=== PATIENT | female | born 1955 | race American Indian/Alaskan Native ===

== ENCOUNTER 2019-01-02 16:13 | Emergency (ER) | payer SELFPAY ==
--- NOTE | 2019-01-02 16:27 | Emergency Department Report ---
Blank Doc - Documentation Documentation: This is a 63-year-old female that presents with withdraw from pain medications. Patient stated has severe pain. This initial assessment/diagnostic orders/clinical plan/treatment(s) is/are subject to change based on patient's health status, clinical progression and re-assessment by fellow clinical providers in the ED. Further treatment and workup at subsequent clinical providers discretion. Patient/guardians urged not to elope from the ED as their condition may be serious if not clinically assessed and managed. Initial orders include: 1- Patient sent to [facility] for further evaluation and treatment 2- labs 3- UA
[2019-01-02 16:53] LABS: Basophils # (Auto) 0.1 K/mm3 (0.0-0.1); Basophils % (Auto) 0.7 % (0.0-1.8); Eosinophils # (Auto) 0.2 K/mm3 (0.0-0.4); Eosinophils % (Auto) 1.1 % (0.0-4.3); Hematocrit 38.8 % (30.3-42.9); Hemoglobin 12.6 gm/dl (10.1-14.3); Lymphocytes # (Auto) 2.5 K/mm3 (1.2-5.4); Lymphocytes % (Auto) 18.1 % (13.4-35.0); Mean Corpuscular HGB Conc 33 % (30-34); Mean Corpuscular Volume 97 fl (79-97); Monocytes # (Auto) 1.5 K/mm3 (0.0-0.8); Monocytes % (Auto) 10.4 % (0.0-7.3); Platelet Count 451 K/mm3 (140-440); Red Cell Distribution Width 15.4 % (13.2-15.2)
[2019-01-02 17:41] LABS: Calcium 9.6 mg/dL (8.4-10.2)
[2019-01-02] MEDS ORDERED: ULTRAM PO ONE (17:48)
[2019-01-02 17:58] VITALS: BP 145/70
--- NOTE | 2019-01-02 18:04 | Emergency Department Report ---
ED General Adult HPI - General Chief complaint: Pain General Stated complaint: RT SIDE PAIN/BACK PAIN Time Seen by Provider: 01/02/19 16:21 Source: patient Mode of arrival: Ambulatory Limitations: No Limitations - History of Present Illness Initial comments: 63 yo F with history of chronic back pain presents to ED requesting prescription. Pt states here PCP gave her prescription for Ultram 50 mg BID, however, states it should have been TID. Pt took meds TID and currently only has 2 pills left. Pt states she called here PCP to ask for a refill, states pharmacy won't fill it yet because it is too soon. Pt states PCP advised her to come to ED. Pt has upcoming appt with new pain management physician. Pt also currently has a neurostimulator which was adjusted a couple of months ago. -: unknown Location: back Severity scale (0 -10): 6 Consistency: intermittent Improves with: medication Worsens with: movement Associated Symptoms: denies other symptoms - Related Data Allergies Allergy/AdvReac Type Severity Reaction Status Date / Time No Known Allergies Allergy Verified 01/02/19 17:57 ED Review of Systems ROS: Stated complaint: RT SIDE PAIN/BACK PAIN Other details as noted in HPI Comment: All other systems reviewed and negative Constitutional: denies: fever Musculoskeletal: back pain ED Past Medical Hx - Past Medical History Previous Medical History?: Yes Hx Hypertension: Yes Hx CVA: Yes (2014,2016) Hx Diabetes: Yes Hx Psychiatric Treatment: Yes (DEPRESSION) Additional medical history: Degenerative disc disease, INTUBATION 2016- RLL VENOUS CLOT,STRIPPED. Post stroke Thalmic syndrome - Surgical History Additional Surgical History: AAA RESTECTION. - Social History Smoking Status: Never Smoker Substance Use Type: None ED Physical Exam - General Limitations: No Limitations General appearance: alert, in no apparent distress - Head Head exam: Present: atraumatic, normocephalic - Eye Eye exam: Present: normal appearance, PERRL - ENT ENT exam: Present: mucous membranes moist - Neck Neck exam: Present: normal inspection - Respiratory Respiratory exam: Present: normal lung sounds bilaterally. Absent: respiratory distress - Cardiovascular Cardiovascular Exam: Present: regular rate, normal rhythm - GI/Abdominal GI/Abdominal exam: Present: soft. Absent: distended - Extremities Exam Extremities exam: Present: normal inspection - Back Exam Back exam: Present: tenderness - Neurological Exam Neurological exam: Present: alert, oriented X3, normal gait - Psychiatric Psychiatric exam: Present: normal affect, normal mood - Skin Skin exam: Present: warm, dry, intact, normal color ED Course Vital Signs 01/02/19 01/02/19 16:23 17:58 Temperature 98 F Pulse Rate 128 H 74 Respiratory 18 16 Rate Blood Pressure 224/101 Blood Pressure 145/70 [Left] O2 Sat by Pulse 96 96 Oximetry ED Medical Decision Making - Lab Data Result diagrams: 01/02/19 16:38 01/02/19 16:38 - Medical Decision Making Pt initially upset, crying about her struggle with her chronic back pain. Tay hoffman this time, the pt walking and standing around the room w/o difficulty. Pt eventually able to calm down. Reports has new pain management physician that she will be seeing soon. I explained that would not be writing any prescriptions for her today. Pt understands, did not argue about it. One dose of tramadol given in ED. Vitals repeated and were normal. Outpt f/u advised. - Differential Diagnosis chronic back pain Critical care attestation.: If time is entered above; I have spent that time in minutes in the direct care of this critically ill patient, excluding procedure time. ED Disposition Clinical Impression: Chronic low back pain Disposition: DC-01 TO HOME OR SELFCARE Is pt being admited?: No Condition: Stable Instructions: Chronic Pain (ED) Referrals: GREG BHATIA MD [Staff Physician] - as needed PRIMARY CARE, [Referring] - as needed Time of Disposition: 18:04
== END 2019-01-02 18:30 | disposition home or self-care (01) ==
LOC: ED 16:13
DX: M54.5 Low back pain (principal); G89.29 Other chronic pain; I10 Essential (primary) hypertension; F32.9 Major depressive disorder, single episode, unspecified; E11.9 Type 2 diabetes mellitus without complications; Z98.890 Other specified postprocedural states; Z86.73 Personal history of transient ischemic attack (TIA), and cerebral infarction without residual deficits
CPT/HCPCS: 36415; 80048; 85025; 99283; G0480; 80320

== ENCOUNTER 2019-01-20 19:59 | Emergency (ER) | payer OTHER ==
--- NOTE | 2019-01-20 20:32 | Event Note ---
ED Screening Note Date of service: 01/20/19 Time: 20:28 ED Screening Note: This is a 63 y.o. F. that presents to the ER for removal of packing from I&D. Patient had an I&D in urgent care for a bartholin cyst on Wednesday. Currently taking pain medication and antibiotics. This initial assessment/diagnostic orders/clinical plan/treatment(s) is/are subject to change based on patients health status, clinical progression and re- assessment by fellow clinical providers in the ED. Further treatment and workup at subsequent clinical providers discretion. Patient/guardian urged not to elope from the ED as their condition may be serious if not clinically assessed and managed. Initial orders include: [facility] for further evaluation.
--- NOTE | 2019-01-20 21:53 | Emergency Department Report ---
- General Chief Complaint: Laceration/Recheck/Suture Stated Complaint: CYST Time Seen by Provider: 01/20/19 20:28 Source: patient Mode of arrival: Ambulatory Limitations: No Limitations - History of Present Illness Initial Comments: This is a 63 y.o. F. that presents to the ER for removal of packing from I&D. Patient had an I&D in urgent care for a bartholin cyst on Wednesday. Patient was seen at [facility] urgent care. Location: genitals Patient Tetanus UTD: Yes - Related Data Allergies Allergy/AdvReac Type Severity Reaction Status Date / Time No Known Allergies Allergy Verified 01/02/19 17:57 ED Review of Systems ROS: Stated complaint: CYST Other details as noted in HPI Comment: All other systems reviewed and negative ED Past Medical Hx - Past Medical History Previous Medical History?: Yes Hx Hypertension: Yes Hx CVA: Yes (2014,2015) Hx Diabetes: Yes Hx Psychiatric Treatment: Yes (DEPRESSION) Additional medical history: Degenerative disc disease, INTUBATION 2016- RLL VENOUS CLOT,STRIPPED. Post stroke Thalmic syndrome - Surgical History Past Surgical History?: Yes Additional Surgical History: AAA RESTECTION. - Social History Smoking Status: Current Every Day Smoker Substance Use Type: None ED Physical Exam - General Limitations: No Limitations General appearance: alert, in no apparent distress - Head Head exam: Present: atraumatic, normocephalic - Eye Eye exam: Present: PERRL, EOMI - ENT ENT exam: Present: mucous membranes moist - External exam: Present: other (patient has a small opening where there is no surgical packing nonerythematous nonerythematous nontender to touch opening.). Absent: erythema, swelling - Neurological Exam Neurological exam: Present: alert, oriented X3, normal gait - Psychiatric Psychiatric exam: Present: normal affect, normal mood - Skin Skin exam: Present: warm, dry, intact, normal color. Absent: rash ED Course Vital Signs 01/20/19 20:02 Temperature 98.3 F Pulse Rate 108 H Respiratory 16 Rate Blood Pressure 119/82 O2 Sat by Pulse 94 Oximetry ED Medical Decision Making - Medical Decision Making This is a 63 y.o. F. that presents to the ER for removal of packing from I&D. Patient had an I&D in urgent care for a bartholin cyst on Wednesday. Patient was seen at [facility] urgent care. Examination of perineum area shows no packing. Patient is to continue with her chronic pain medications and antibiotics as prescribed and her provider. Critical care attestation.: If time is entered above; I have spent that time in minutes in the direct care of this critically ill patient, excluding procedure time. ED Disposition Clinical Impression: Visit for wound check Disposition: TO HOME OR SELFCARE Is pt being admited?: No Does the pt Need Aspirin: No Condition: Stable Additional Instructions: Keep area clean and dry continue her routine of cleansing. Take your medications as prescribed. Follow up with her primary care provider if his symptoms persist or gets worse. Referrals: SUDHIR GUTHRIE MD [Primary Care Provider] - 3-5 Days
[2019-01-20 23:41] VITALS: BP 136/85
== END 2019-01-20 21:50 | disposition home or self-care (01) ==
LOC: ED 19:59
DX: Z48.01 Encounter for change or removal of surgical wound dressing (principal); I10 Essential (primary) hypertension; E11.9 Type 2 diabetes mellitus without complications; F32.9 Major depressive disorder, single episode, unspecified; F17.200 Nicotine dependence, unspecified, uncomplicated; Z86.73 Personal history of transient ischemic attack (TIA), and cerebral infarction without residual deficits; Z98.890 Other specified postprocedural states

== ENCOUNTER 2019-03-28 14:00 | Inpatient (IN) | payer MEDICARE, OTHER ==
--- NOTE | 2019-03-28 14:07 | Event Note ---
ED Screening Note Date of service: 03/28/19 Time: 14:05 ED Screening Note: 63 y o f with pmh of stroke x 2 presents with left sided weakness resulting in fall x 1 pm yesterday This initial assessment/diagnostic orders/clinical plan/treatment(s) is/are subject to change based on patients health status, clinical progression and re- assessment by fellow clinical providers in the ED. Further treatment and workup at subsequent clinical providers discretion. Patient/guardian urged not to elope from the ED as their condition may be serious if not clinically assessed and managed. Initial orders include: labs ct main side eval
[2019-03-28 14:42] LABS: INR 0.93 (0.87-1.13)
[2019-03-28 14:43] LABS: Partial Thromboplastin Time 32.1 Sec. (24.2-36.6); Thrombin Time 16.6 Sec. (15.1-19.6)
[2019-03-28 14:44] LABS: Hemoglobin 11.2 gm/dl (10.1-14.3); Mean Corpuscular HGB Conc 33 % (30-34); Mean Corpuscular Volume 98 fl (79-97); Platelet Count 472 K/mm3 (140-440); Red Blood Count 3.47 M/mm3 (3.65-5.03); Red Cell Distribution Width 16.4 % (13.2-15.2)
--- NOTE | 2019-03-28 14:59 | Cat Scan Report ---
CT HEAD WITHOUT CONTRAST INDICATION / CLINICAL INFORMATION: taras stroke. TECHNIQUE: All CT scans at this location are performed using CT dose reduction for ALARA by means of automated e xposure control. COMPARISON: None available. FINDINGS: HEMORRHAGE: No evidence of intracranial hemorrhage or extra-axial fluid collection. EXTRA-AXIAL SPACES: Cortical sulci, sylvian fissures and basilar cisterns have an unremarkable appear ance. VENTRICULAR SYSTEM: The ventricular system is of normal size and configuration. CEREBRAL PARENCHYMA: Periventricular and deep white matter areas of decreased attenuation are noted i n both cerebral hemispheres consistent with microvascular ischemic change which is greater than expec pop for patient's age of 63 years. Are there risk factors such as hypertension, diabetes or cigarette s smoking A focal low-attenuation lesion in the left thalamus represents a remote small deep infarcti on. Low-attenuation in the anterior limb of the right internal capsule could represent microvascular ischemic change versus small deep infarction, age indeterminate. Further evaluation with magnetic res onance imaging with diffusion imaging would be useful for further clarification of these findings.. MIDLINE SHIFT OR HERNIATION: There is no mass effect. CEREBELLUM / BRAINSTEM: Brainstem and cerebellum have an unremarkable appearance. INTRACRANIAL VESSELS: Extensively calcified atherosclerotic plaque is observed along the course of th e cavernous segments of both internal carotid arteries. ORBITS: visualized portions of the orbits have an unremarkable appearance. SOFT TISSUES of HEAD: No significant abnormality. CALVARIUM: Evaluation of bone windows reveals no abnormalities. PARANASAL SINUSES / MASTOID AIR CELLS: Paranasal sinuses are free from inflammatory mucosal disease. Mastoid air cells are normally pneumatized. IMPRESSION: 1. Advanced microvascular ischemic change. 2. Remote small deep infarction left thalamus. Question microvascular ischemic change versus age-inde terminate small deep infarction anterior limb right internal capsule. Follow-up with MRI brain to [facility] diffusion-weighted imaging is suggested. Signer Name: Mike William MD Signed: 03/28/2019 2:55 PM Workstation Name: [id number]
[2019-03-28 15:10] LABS: Creatine Kinase MB 1.5 ng/mL (0.0-4.0)
[2019-03-28 15:40] LABS: Bacteria,Urine 1+ /HPF (Negative); Mucus,Urine FEW /HPF
[2019-03-28 15:43] LABS: Color,Urine Yellow (Yellow)
[2019-03-28 15:44] LABS: Bilirubin,Urine Negative (Negative); Blood,Urine Negative (Negative); Urobilinogen,Urine < 2.0 mg/dL (<2.0)
[2019-03-28] MEDS ORDERED: cefTRIAXone/NS 1 GM/50 ML 1 GM/50 ML BAG IV ONE (16:07)
--- NOTE | 2019-03-28 16:11 | Emergency Department Report ---
ED General Adult HPI - General Chief complaint: Neuro Symptoms/Deficit Stated complaint: POSS STROKE/LFT HAND NUM Time Seen by Provider: 03/28/19 14:03 Source: patient Mode of arrival: Wheelchair Limitations: Physical Limitation - History of Present Illness Initial comments: * The patient presents to the ED with a chief complaint was mouth numbness and w hat most recently weakness. Patient has a history of CVA, hypertension, diabetes which she describes as residual right mouth numbness and right leg weakness. Patient states last night she noticed that her mouth was became more mild and that her right leg was more weak and was also spirits and sign ificant numbness. Patient states that her symptoms were not resolved this a.m. she decided to come to the hospital. They say she is noncompliant with her daily aspirin dosage. Patient denies chest pain, shortness of breath, or abdominal pain. -: Sudden Location: lower extremity Radiation: non-radiation Severity scale (0 -10): 0 Consistency: constant Improves with: none Worsens with: none Associated Symptoms: denies other symptoms Treatments Prior to Arrival: none - Related Data Home Medications Medication Instructions Recorded Confirmed Last Taken Amlodipine Besylate/Benazepril 1 each PO QDAY 03/28/19 03/28/19 03/28/19 [Amlodipine-Benazepril 10-40 mg] DULoxetine [Cymbalta] 30 mg PO QDAY 03/28/19 03/28/19 03/28/19 Gabapentin [Neurontin] 600 mg PO Q8H 03/28/19 03/28/19 03/27/19 Ibuprofen [Motrin] 800 mg PO Q8HR PRN 03/28/19 03/28/19 03/27/19 Triamter/Hctz 37.5-25 mg 2 tab PO QDAY 03/28/19 03/28/19 03/28/19 [Maxzide-25] traMADol [Ultram] 50 mg PO Q6HR PRN 03/28/19 03/28/19 03/27/19 Allergies Allergy/AdvReac Type Severity Reaction Status Date / Time No Known Allergies Allergy Verified 01/02/19 17:57 ED Review of Systems ROS: Stated complaint: POSS STROKE/LFT HAND NUM Other details as noted in HPI Comment: All other systems reviewed and negative Constitutional: denies: chills, fever Eyes: denies: eye pain, eye discharge, vision change ENT: denies: ear pain, throat pain Respiratory: denies: cough, shortness of breath, wheezing Cardiovascular: denies: chest pain, palpitations Endocrine: no symptoms reported Gastrointestinal: denies: abdominal pain, nausea, diarrhea Genitourinary: denies: urgency, dysuria, discharge Musculoskeletal: denies: back pain, joint swelling, arthralgia Skin: denies: rash, lesions Neurological: weakness, numbness. denies: headache, paresthesias Psychiatric: denies: anxiety, depression Hematological/Lymphatic: denies: easy bleeding, easy bruising ED Past Medical Hx - Past Medical History Previous Medical History?: Yes Hx Hypertension: Yes Hx CVA: Yes (2014,2015) Hx Diabetes: Yes Hx Psychiatric Treatment: Yes (DEPRESSION) Additional medical history: Degenerative disc disease, INTUBATION 2016- RLL VENOUS CLOT,STRIPPED. Post stroke Thalmic syndrome - Surgical History Past Surgical History?: Yes Additional Surgical History: AAA RESTECTION. - Social History Smoking Status: Current Every Day Smoker Substance Use Type: None - Medications Home Medications: Home Medications Medication Instructions Recorded Confirmed Last Taken Type Amlodipine Besylate/Benazepril 1 each PO QDAY 03/28/19 03/28/19 03/28/19 History [Amlodipine-Benazepril 10-40 mg] DULoxetine [Cymbalta] 30 mg PO QDAY 03/28/19 03/28/19 03/28/19 History Gabapentin [Neurontin] 600 mg PO Q8H 03/28/19 03/28/19 03/27/19 History Ibuprofen [Motrin] 800 mg PO Q8HR PRN 03/28/19 03/28/19 03/27/19 History Triamter/Hctz 37.5-25 mg 2 tab PO QDAY 03/28/19 03/28/19 03/28/19 History [Maxzide-25] traMADol [Ultram] 50 mg PO Q6HR PRN 03/28/19 03/28/19 03/27/19 History ED Physical Exam - General Limitations: Physical Limitation General appearance: alert, in no apparent distress - Head Head exam: Present: atraumatic, normocephalic - Eye Eye exam: Present: normal appearance, PERRL, EOMI - ENT ENT exam: Present: mucous membranes moist - Neck Neck exam: Present: normal inspection - Respiratory Respiratory exam: Present: normal lung sounds bilaterally. Absent: respiratory distress, wheezes, rales - Cardiovascular Cardiovascular Exam: Present: regular rate, normal rhythm. Absent: systolic murmur, diastolic murmur, rubs, gallop - GI/Abdominal GI/Abdominal exam: Present: soft, normal bowel sounds. Absent: distended, tenderness - Extremities Exam Extremities exam: Present: normal inspection - Back Exam Back exam: Present: normal inspection - Neurological Exam Neurological exam: Present: alert, oriented X3, CN II-XII intact. Absent: motor sensory deficit - Psychiatric Psychiatric exam: Present: normal affect, normal mood - Skin Skin exam: Present: warm, dry, intact, normal color. Absent: rash ED Course Vital Signs 03/28/19 03/28/19 03/28/19 14:09 15:10 16:27 Temperature 98.2 F Pulse Rate 91 H 72 66 Respiratory 20 16 16 Rate Blood Pressure 144/59 Blood Pressure 138/53 135/48 [Left] O2 Sat by Pulse 97 95 95 Oximetry ED Medical Decision Making - Lab Data Result diagrams: 03/28/19 14:11 Lab Results 03/28/19 03/28/19 03/28/19 Range/Units 14:11 14:11 14:11 WBC 10.9 (4.5-11.0) K/mm3 RBC 3.47 L (3.65-5.03) M/mm3 Hgb 11.2 (10.1-14.3) gm/dl Hct 34.0 (30.3-42.9) % MCV 98 H (79-97) fl MCH 32 (28-32) pg MCHC 33 (30-34) % RDW 16.4 H (13.2-15.2) % Plt Count 472 H (140-440) K/mm3 Lymph % (Auto) Computer Peripheral Equipment Operator Williams % (Auto) Computer Peripheral Equipment Operator Eos % (Auto) Computer Peripheral Equipment Operator Baso % (Auto) Computer Peripheral Equipment Operator Lymph # Computer Peripheral Equipment Operator Williams # Computer Peripheral Equipment Operator Eos # Computer Peripheral Equipment Operator Baso # Computer Peripheral Equipment Operator Seg Neutrophils % Computer Peripheral Equipment Operator Seg Neutrophils # Computer Peripheral Equipment Operator PT 12.2 (12.2-14.9) Sec. INR 0.93 (0.87-1.13) APTT 32.1 (24.2-36.6) Sec. Thrombin Time 16.6 (15.1-19.6) Sec. POC Glucose (70-105) Total Creatine Kinase 32 (30-135) units/L CK-MB (CK-2) 1.5 (0.0-4.0) ng/mL CK-MB (CK-2) Rel Index 4.6 H (0-4) Troponin T < 0.010 (0.00-0.029) ng/mL Urine Color (Yellow) Urine Turbidity (Clear) Urine pH (5.0-7.0) Ur Specific Allen (1.003-1.030) Urine Protein (Negative) mg/dL Urine Glucose (UA) (Negative) mg/dL Urine Ketones (Negative) mg/dL Urine Blood (Negative) Urine Nitrite (Negative) Ur Reducing Substances Urine Bilirubin (Negative) Urine Ictotest Urine Urobilinogen (<2.0) mg/dL Ur Leukocyte Esterase (Negative) Urine WBC (Auto) (0.0-6.0) /HPF Urine RBC (Auto) (0.0-6.0) /HPF U Epithel Cells (Auto) (0-13.0) /HPF Urine Bacteria (Auto) (Negative) /HPF Urine Mucus /HPF 03/28/19 03/28/19 Range/Units 14:16 15:09 WBC (4.5-11.0) K/mm3 RBC (3.65-5.03) M/mm3 Hgb (10.1-14.3) gm/dl Hct (30.3-42.9) % MCV (79-97) fl MCH (28-32) pg MCHC (30-34) % RDW (13.2-15.2) % Plt Count (140-440) K/mm3 Lymph % (Auto) Williams % (Auto) Eos % (Auto) Baso % (Auto) Lymph # Williams # Eos # Baso # Seg Neutrophils % Seg Neutrophils # PT (12.2-14.9) Sec. INR (0.87-1.13) APTT (24.2-36.6) Sec. Thrombin Time (15.1-19.6) Sec. POC Glucose 401 H (70-105) Total Creatine Kinase (30-135) units/L CK-MB (CK-2) (0.0-4.0) ng/mL CK-MB (CK-2) Rel Index (0-4) Troponin T (0.00-0.029) ng/mL Urine Color Yellow (Yellow) Urine Turbidity Cloudy (Clear) Urine pH 5.0 (5.0-7.0) Ur Specific Allen 1.027 (1.003-1.030) Urine Protein 30 mg/dl (Negative) mg/dL Urine Glucose (UA) >=500 (Negative) mg/dL Urine Ketones Trace (Negative) mg/dL Urine Blood Negative (Negative) Urine Nitrite Negative (Negative) Ur Reducing Substances Not Reportable Urine Bilirubin Negative (Negative) Urine Ictotest Not Reportable Urine Urobilinogen < 2.0 (<2.0) mg/dL Ur Leukocyte Esterase Large (Negative) Urine WBC (Auto) 85.0 H (0.0-6.0) /HPF Urine RBC (Auto) 3.0 (0.0-6.0) /HPF U Epithel Cells (Auto) 5.0 (0-13.0) /HPF Urine Bacteria (Auto) 1+ (Negative) /HPF Urine Mucus Few /HPF - EKG Data -: EKG Interpreted by Me EKG shows normal: sinus rhythm Rate: normal - Radiology Data Radiology results: report reviewed - Medical Decision Making results discussed with patient Patient was outside of the TPA window since her symptoms started yesterday before going to bed Critical care attestation.: If time is entered above; I have spent that time in minutes in the direct care of this critically ill patient, excluding procedure time. ED Disposition Clinical Impression: Numbness and tingling Disposition: 09 OP ADMIT IP TO THIS HOSP Is pt being admited?: No Does the pt Need Aspirin: No Condition: Stable - Assessment Assessment Interval: Baseline - Level of Consciousness 1a. Level of Consciousness: alert/keenly responsive - LOC Questions 1b. LOC Questions: answers both correctly - LOC Command 1c. LOC Commands: performs tasks correctly - Best Gaze 2. Best Gaze: normal - Visual 3. Visual: no visual loss - Facial Palsy 4. Facial Palsy: normal symmetrical movement - Motor Arm 5a. Motor Arm Left: no drift 5b. Motor Arm Right: no drift - Motor Leg 6a. Motor Leg Left: no drift 6b. Motor Leg Right: no drift - Limb Ataxia 7. Limb Ataxia: absent - Sensory 8. Sensory: normal - Best Language 9. Best Language: no aphasia - Dysarthria 10. Dysarthria: normal - Extinction and Inattention 11. Extinction/Inattention: no abnormality - Scoring Total Score: 0 Stroke Severity: No Stroke Symptoms
[2019-03-28] MEDS ORDERED: ASPIRIN 81 MG TAB CHEW PO ONE (16:25)
[2019-03-28] MEDS ORDERED: SODIUM CHLORIDE 0.9% 1000 ML 1,000 ML IV ONE (17:10)
[2019-03-28] MEDS ORDERED: SODIUM CHLORIDE 0.9% 1000 ML 1,000 ML ONE (17:13)
[2019-03-28] MEDS ORDERED: ACETAMINOPHEN 325 MG TAB PO PRN (20:43)
[2019-03-28] MEDS ORDERED: HYDROmorphone 1 MG/1 ML INJ IV PRN (20:43)
[2019-03-28] MEDS ORDERED: ONDANSETRON 4 MG/2 ML INJ IV PRN (20:43)
--- NOTE | 2019-03-28 20:43 | History and Physical Report ---
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 The symptoms are persistent with left-sided numbness of the face and left lower exudate weakness which is improved to some extent. Patient has no residual weakness on the right side from previous CVA's Past Medical History Previous Medical History?: Yes Hypertension: Yes CVA: Yes (2014,2016) Diabetes: Yes Psychiatric Treatment: Yes (DEPRESSION) Additional medical history: Degenerative disc disease, INTUBATION 2016- RLL VENOUS CLOT,STRIPPED. Post stroke Thalmic syndrome Surgical History Past Surgical History?: Yes Additional Surgical History: AAA RESTECTION Stents X 3 for PAD. Social History Current Every Day Smoker Substance Use Type: None Family History Htn - Medications Home Medications: Home Medications Medication Instructions Recorded Confirmed Last Taken Type Amlodipine Besylate/Benazepril 1 each PO QDAY 03/28/19 03/28/19 03/28/19 History [Amlodipine-Benazepril 10-40 mg] DULoxetine [Cymbalta] 30 mg PO QDAY 03/28/19 03/28/19 03/28/19 History Gabapentin [Neurontin] 600 mg PO Q8H 03/28/19 03/28/19 03/27/19 History Ibuprofen [Motrin] 800 mg PO Q8HR PRN 03/28/19 03/28/19 03/27/19 History Triamter/Hctz 37.5-25 mg 2 tab PO QDAY 03/28/19 03/28/19 03/28/19 History [Maxzide-25] traMADol [Ultram] 50 mg PO Q6HR PRN 03/28/19 03/28/19 03/27/19 History Review of Systems ROS: Stated complaint: POSS STROKE/LFT HAND NUM Other details as noted in HPI Comment: All other systems reviewed and negative Constitutional: denies: chills, fever Eyes: denies: eye pain, eye discharge, vision change ENT: denies: ear pain, throat pain Respiratory: denies: cough, shortness of breath, wheezing Cardiovascular: denies: chest pain, palpitations Endocrine: no symptoms reported Gastrointestinal: denies: abdominal pain, nausea, diarrhea Genitourinary: denies: urgency, dysuria, discharge Musculoskeletal: denies: back pain, joint swelling, arthralgia Skin: denies: rash, lesions Neurological: weakness, numbness. denies: headache, paresthesias Psychiatric: denies: anxiety, depression Hematological/Lymphatic: denies: easy bleeding, easy bruising Medications and Allergies Allergies Allergy/AdvReac Type Severity Reaction Status Date / Time No Known Allergies Allergy Verified 01/02/19 17:57 Home Medications Medication Instructions Recorded Confirmed Last Taken Type Amlodipine Besylate/Benazepril 1 each PO QDAY 03/28/19 03/28/19 03/28/19 History [Amlodipine-Benazepril 10-40 mg] DULoxetine [Cymbalta] 30 mg PO QDAY 03/28/19 03/28/19 03/28/19 History Gabapentin [Neurontin] 600 mg PO Q8H 03/28/19 03/28/19 03/27/19 History Ibuprofen [Motrin] 800 mg PO Q8HR PRN 03/28/19 03/28/19 03/27/19 History Triamter/Hctz 37.5-25 mg 2 tab PO QDAY 03/28/19 03/28/19 03/28/19 History [Maxzide-25] traMADol [Ultram] 50 mg PO Q6HR PRN 03/28/19 03/28/19 03/27/19 History Exam - Constitutional Vitals: Temp Pulse Resp BP Pulse Ox 98.2 F 69 18 148/58 94 03/28/19 14:09 03/28/19 19:49 03/28/19 19:49 03/28/19 19:49 03/28/19 19:49 Results - Labs CBC & Chem 7: 03/28/19 14:11 Labs: Laboratory Last Values WBC 10.9 K/mm3 (4.5-11.0) 03/28/19 14:11 RBC 3.47 M/mm3 (3.65-5.03) L 03/28/19 14:11 Hgb 11.2 gm/dl (10.1-14.3) 03/28/19 14:11 Hct 34.0 % (30.3-42.9) 03/28/19 14:11 MCV 98 fl (79-97) H 03/28/19 14:11 MCH 32 pg (28-32) 03/28/19 14:11 MCHC 33 % (30-34) 03/28/19 14:11 RDW 16.4 % (13.2-15.2) H 03/28/19 14:11 Plt Count 472 K/mm3 (140-440) H 03/28/19 14:11 Lymph % (Auto) Stem Shaper 03/28/19 14:11 [place] % (Auto) Stem Shaper 03/28/19 14:11 Eos % (Auto) Stem Shaper 03/28/19 14:11 Baso % (Auto) Stem Shaper 03/28/19 14:11 Lymph # Stem Shaper 03/28/19 14:11 [place] # Stem Shaper 03/28/19 14:11 Eos # Stem Shaper 03/28/19 14:11 Baso # Stem Shaper 03/28/19 14:11 Seg Neutrophils % Stem Shaper 03/28/19 14:11 Seg Neutrophils # Stem Shaper 03/28/19 14:11 PT 12.2 Sec. (12.2-14.9) 03/28/19 14:11 INR 0.93 (0.87-1.13) 03/28/19 14:11 APTT 32.1 Sec. (24.2-36.6) 03/28/19 14:11 Thrombin Time 16.6 Sec. (15.1-19.6) 03/28/19 14:11 POC Glucose 401 (70-105) H 03/28/19 14:16 Lactic Acid 2.10 mmol/L (0.7-2.0) H* 03/28/19 19:02 Total Creatine Kinase 32 units/L (30-135) 03/28/19 14:11 CK-MB (CK-2) 1.5 ng/mL (0.0-4.0) 03/28/19 14:11 CK-MB (CK-2) Rel Index 4.6 (0-4) H 03/28/19 14:11 Troponin T < 0.010 ng/mL (0.00-0.029) 03/28/19 14:11 Urine Color Yellow (Yellow) 03/28/19 15:09 Urine Turbidity Cloudy (Clear) 03/28/19 15:09 Urine pH 5.0 (5.0-7.0) 03/28/19 15:09 Ur Specific [place] 1.027 (1.003-1.030) 03/28/19 15:09 Urine Protein 30 mg/dl mg/dL (Negative) 03/28/19 15:09 Urine Glucose (UA) >=500 mg/dL (Negative) 03/28/19 15:09 Urine Ketones Trace mg/dL (Negative) 03/28/19 15:09 Urine Blood Negative (Negative) 03/28/19 15:09 Urine Nitrite Negative (Negative) 03/28/19 15:09 Ur Reducing Substances Not Reportable 03/28/19 15:09 Urine Bilirubin Negative (Negative) 03/28/19 15:09 Urine Ictotest Not Reportable 03/28/19 15:09 Urine Urobilinogen < 2.0 mg/dL (<2.0) 03/28/19 15:09 Ur Leukocyte Esterase Large (Negative) 03/28/19 15:09 Urine WBC (Auto) 85.0 /HPF (0.0-6.0) H 03/28/19 15:09 Urine RBC (Auto) 3.0 /HPF (0.0-6.0) 03/28/19 15:09 U Epithel Cells (Auto) 5.0 /HPF (0-13.0) 03/28/19 15:09 Urine Bacteria (Auto) 1+ /HPF (Negative) 03/28/19 15:09 Urine Mucus Few /HPF 03/28/19 15:09 Assessment and Plan Advance Directives: Yes (Full code) VTE prophylaxis?: Chemical Plan of care discussed with patient/family: Yes - Patient Problems (1) CVA (cerebral vascular accident) Current Visit: Yes Status: Acute Qualifiers: CVA mechanism: unspecified Qualified Code(s): I63.9 - Cerebral infarction, unspecified Plan to address problem: CVA w/u MRI,ECHO ordered,CDS ordered MRA not ordered Neuro consult requested ASA 325 mg po qd initiated (2) SIRS (systemic inflammatory response syndrome) Current Visit: Yes Status: Acute Plan to address problem: Sec to UTI High Lactic acid level Check urine cultures (3) HTN (hypertension) Current Visit: Yes Status: Chronic Qualifiers: Hypertension type: essential hypertension Qualified Code(s): I10 - Essential (primary) hypertension Plan to address problem: Cont antihypertensives (4) Peripheral neuropathy Current Visit: Yes Status: Chronic Qualifiers: Peripheral neuropathy type: polyneuropathy, unspecified Qualified Code(s): G62.9 - Polyneuropathy, unspecified Plan to address problem: Cont Gabapentin (5) Depression Current Visit: Yes Status: Chronic Qualifiers: Depression Type: unspecified Qualified Code(s): F32.9 - Major depressive disorder, single episode, unspecified Plan to address problem: Cont Cymbalta (6) UTI (urinary tract infection) Current Visit: Yes Status: Acute Qualifiers: Urinary tract infection type: acute cystitis Plan to address problem: Initiated on IV Rocephin Check urine cultures (7) T2DM (type 2 diabetes mellitus) Current Visit: Yes Status: Acute Qualifiers: Diabetes mellitus detention insulin use: without detention use Plan to address problem: Lantus 15 mg sq hs Initiated Metformin 500 mg po bid Check A1c (8) Nicotine dependence Current Visit: Yes Status: Chronic Qualifiers: Nicotine product type: cigarettes Plan to address problem: Counselled about Stopping cigarettes Nicoderm patch initiated (9) DVT prophylaxis Current Visit: Yes Status: Acute Plan to address problem: On Lovenox and GI prophylaxis
[2019-03-28] MEDS ORDERED: SODIUM CHLORIDE 0.9% 1000 ML 1,000 ML IV SCH (21:00)
[2019-03-28] MEDS: ASPIRIN 325 MG TAB PO SCH (21:43)
[2019-03-28] MEDS: metFORMIN 500 MG TAB PO SCH (23:28)
[2019-03-28] MEDS: oxyCODONE /ACETAMINOPHEN 5-325MG TAB PO PRN (23:29)
[2019-03-28] MEDS: INSULIN GLARGINE 100 UNITS/ML SUB-Q SCH (23:29)
[2019-03-28] MEDS: INSULIN LISPRO 100 UNIT/ML SUB-Q SCH (23:30)
[2019-03-29] MEDS: oxyCODONE /ACETAMINOPHEN 5-325MG TAB PO PRN ×3 (05:17→17:37)
[2019-03-29 05:57] LABS: Basophils # (Auto) 0.1 K/mm3 (0.0-0.1); Basophils % (Auto) 0.6 % (0.0-1.8); Eosinophils # (Auto) 0.2 K/mm3 (0.0-0.4); Hematocrit 32.3 % (30.3-42.9); Hemoglobin 10.6 gm/dl (10.1-14.3); Lymphocytes # (Auto) 2.1 K/mm3 (1.2-5.4); Lymphocytes % (Auto) 21.7 % (13.4-35.0); Mean Corpuscular HGB Conc 33 % (30-34); Mean Corpuscular Volume 99 fl (79-97); Monocytes % (Auto) 10.8 % (0.0-7.3); Platelet Count 416 K/mm3 (140-440); Red Blood Count 3.27 M/mm3 (3.65-5.03); Red Cell Distribution Width 16.5 % (13.2-15.2)
[2019-03-29 06:05] LABS: Albumin 3.3 g/dL (3.9-5); BUN/Creatinine Ratio 32; Blood Urea Nitrogen 19 mg/dL (7-17); Calcium 8.3 mg/dL (8.4-10.2); Chol/HDL Ratio 8.24 %; HDL Cholesterol 37 mg/dL (40-59); Hemolysis Index 2; LDL Cholesterol,Direct 233 mg/dL (50-130)
[2019-03-29 06:11] LABS: Alanine Aminotransferase < 5 units/L (7-56)
--- NOTE | 2019-03-29 08:32 | Vascular Lab Report ---
BILATERAL CAROTID DOPPLER ULTRASOUND INDICATION : stroke TECHNIQUE: Grayscale and color Doppler imaging performed through the neck. COMPARISON: None FINDINGS: Right: There is moderate heterogeneous, irregular, calcific plaque in the distal CCA, carotid bulb and proximal ICA.. Peak systolic velocity in the CCA is 116 cm/s with end-diastolic velocity of 14 cm /s. Peak systolic velocity in the proximal ICA is 153 cm/s with end-diastolic velocity of 10 cm/s. IC A to CCA ratio is less than 2. There is antegrade flow in the ECA and the vertebral artery. Left: There is mild heterogeneous calcific plaque in the mid CCA and carotid bulb. Peak systolic [place] in the CCA is 126 cm/s with end-diastolic velocity of 16 cm/s. Peak systolic velocity in the pro ximal ICA is 90 cm/s with end-diastolic velocity of 21 cm/s. ICA to CCA ratio is less than 2. There i s antegrade flow in the ECA and the vertebral artery. IMPRESSION: There is moderate atherosclerotic disease near the right carotid bifurcation with Doppler velocity measurements indicating 50-69% stenosis in the proximal and mid right ICA. There is less th an 50% luminal narrowing throughout the left carotid system.. Signer Name: Maynor Cotto Jr, MD Signed: 03/29/2019 8:28 AM Workstation Name: [id number]
[2019-03-29] MEDS: cefTRIAXone/NS 2 GM/100 ML 2 GM/100 ML BAG IV SCH (09:45)
[2019-03-29] MEDS: metFORMIN 500 MG TAB PO SCH ×2 (09:46→17:37)
[2019-03-29] MEDS: INSULIN LISPRO 100 UNIT/ML SUB-Q SCH ×4 (09:46→22:50)
[2019-03-29] MEDS: ASPIRIN 325 MG TAB PO SCH (09:47)
[2019-03-29] MEDS ORDERED: ENOXAPARIN 30 MG/0.3 ML INJ SUB-Q SCH (10:00)
[2019-03-29] MEDS ORDERED: FLU VACC QUAD 2019-20 (3 YR UP)/PF 60 MCG/0.5 ML SYRINGE IM ONE (12:00)
--- NOTE | 2019-03-29 16:52 | Progress Note ---
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 The symptoms are persistent with left-sided numbness of the face and left lower exudate weakness which is improved to some extent. Patient has no residual weakness on the right side from previous CVA's. Unable to do MRI due to nerve stimulator. (1) CVA (cerebral vascular accident) Current Visit: Yes Status: Acute Qualifiers: CVA mechanism: unspecified Qualified Code(s): I63.9 - Cerebral infarction, unspecified Plan to address problem: CVA w/u ECHO ordered,CDS ordered no MRI due to metallic nerve stimulator Neuro consult requested ASA 325 mg po qd initiated (2) Sepsis UTI Current Visit: Yes Status: Acute Plan to address problem: Sec to UTI High Lactic acid level Check urine cultures (3) HTN (hypertension) Current Visit: Yes Status: Chronic Qualifiers: Hypertension type: essential hypertension Qualified Code(s): I10 - Essential (primary) hypertension Plan to address problem: Cont antihypertensives (4) Peripheral neuropathy Current Visit: Yes Status: Chronic Qualifiers: Peripheral neuropathy type: polyneuropathy, unspecified Qualified Code(s): G62.9 - Polyneuropathy, unspecified Plan to address problem: Cont Gabapentin (5) Depression Current Visit: Yes Status: Chronic Qualifiers: Depression Type: unspecified Qualified Code(s): F32.9 - Major depressive disorder, single episode, unspecified Plan to address problem: Cont Cymbalta (6) UTI (urinary tract infection) Current Visit: Yes Status: Acute Qualifiers: Urinary tract infection type: acute cystitis Plan to address problem: Initiated on IV Rocephin Check urine cultures (7) T2DM (type 2 diabetes mellitus) Current Visit: Yes Status: Acute Qualifiers: Diabetes mellitus intermediate insulin use: without terminal worker use Plan to address problem: Lantus 15 mg sq hs Initiated Metformin 500 mg po bid Check A1c (8) Nicotine dependence Current Visit: Yes Status: Chronic Qualifiers: Nicotine product type: cigarettes Plan to address problem: Counselled about Stopping cigarettes Nicoderm patch initiated (9) DVT prophylaxis Current Visit: Yes Status: Acute Plan to address problem: On Lovenox and GI prophylaxis History Interval history: Patient was seen and examined. Follow-up on current diagnosis CVA. No overnight events reported to me. Patient denies any chest pain, shortness breath, n ausea/vomiting or severe headaches. Imaging, nursing note, chart, labs and old chart reviewed. Discussed with patient. Hospitalist Physical - Physical exam Narrative exam: Gen: WDWN, NAD, Awake, Alert, Orientated HEENT: NCAT, EOMI, PERRL, OP Clear Neck: supple, no adenopathy, no thyromegaly, no JVD CVS/Heart: RRR, normal S1S2, pulses present bilaterally Chest/Lungs: CTA B, Symmetrical chest expansion, good air entry bilaterally GI/Abdomen: soft, NTND, good bowel sounds, no guarding or rebound /Bladder: no suprapubic tenderness, no CVA or paraspinal tenderness Extermity/Skin: no c/c/e, no obvious rash MSK: FROM x 4 Neuro: CN 2-12 grossly intact, facial asym, left leg dragging, old right slight reduced muscle strength Psych: calm - Constitutional Vitals: Temp Pulse Resp BP Pulse Ox 98.4 F 67 18 159/56 97 03/29/19 04:03 03/29/19 10:00 03/29/19 11:00 03/29/19 04:03 03/29/19 10:15 Results - Labs CBC & Chem 7: 03/29/19 04:34 03/29/19 04:34 Labs: Laboratory Last Values WBC 9.6 K/mm3 (4.5-11.0) 03/29/19 04:34 RBC 3.27 M/mm3 (3.65-5.03) L 03/29/19 04:34 Hgb 10.6 gm/dl (10.1-14.3) 03/29/19 04:34 Hct 32.3 % (30.3-42.9) 03/29/19 04:34 MCV 99 fl (79-97) H 03/29/19 04:34 MCH 32 pg (28-32) 03/29/19 04:34 MCHC 33 % (30-34) 03/29/19 04:34 RDW 16.5 % (13.2-15.2) H 03/29/19 04:34 Plt Count 416 K/mm3 (140-440) 03/29/19 04:34 Lymph % (Auto) 21.7 % (13.4-35.0) 03/29/19 04:34 [place] % (Auto) 10.8 % (0.0-7.3) H 03/29/19 04:34 Eos % (Auto) 2.0 % (0.0-4.3) 03/29/19 04:34 Baso % (Auto) 0.6 % (0.0-1.8) 03/29/19 04:34 Lymph # 2.1 K/mm3 (1.2-5.4) 03/29/19 04:34 [place] # 1.0 K/mm3 (0.0-0.8) H 03/29/19 04:34 Eos # 0.2 K/mm3 (0.0-0.4) 03/29/19 04:34 Baso # 0.1 K/mm3 (0.0-0.1) 03/29/19 04:34 Seg Neutrophils % 64.9 % (40.0-70.0) 03/29/19 04:34 Seg Neutrophils # 6.2 K/mm3 (1.8-7.7) 03/29/19 04:34 PT 12.2 Sec. (12.2-14.9) 03/28/19 14:11 INR 0.93 (0.87-1.13) 03/28/19 14:11 APTT 32.1 Sec. (24.2-36.6) 03/28/19 14:11 Thrombin Time 16.6 Sec. (15.1-19.6) 03/28/19 14:11 Sodium 140 mmol/L (137-145) 03/29/19 04:34 Potassium 4.3 mmol/L (3.6-5.0) 03/29/19 04:34 Chloride 102.2 mmol/L (98-107) 03/29/19 04:34 Carbon Dioxide 26 mmol/L (22-30) 03/29/19 04:34 Anion Gap 16 mmol/L 03/29/19 04:34 BUN 19 mg/dL (7-17) H 03/29/19 04:34 Creatinine 0.6 mg/dL (0.7-1.2) L 03/29/19 04:34 Estimated GFR > 60 ml/min 03/29/19 04:34 BUN/Creatinine Ratio 32 % 03/29/19 04:34 Glucose 296 mg/dL (65-100) H 03/29/19 04:34 POC Glucose 280 (70-105) H 03/29/19 12:28 Hemoglobin A1c 13.0 % (4-6) H 03/28/19 14:11 Lactic Acid 2.80 mmol/L (0.7-2.0) H* 03/28/19 23:46 Calcium 8.3 mg/dL (8.4-10.2) L 03/29/19 04:34 Total Bilirubin < 0.20 mg/dL (0.1-1.2) 03/29/19 04:34 AST 8 units/L (5-40) 03/29/19 04:34 ALT < 5 units/L (7-56) L 03/29/19 04:34 Alkaline Phosphatase 94 units/L (35-129) 03/29/19 04:34 Total Creatine Kinase 32 units/L (30-135) 03/28/19 14:11 CK-MB (CK-2) 1.5 ng/mL (0.0-4.0) 03/28/19 14:11 CK-MB (CK-2) Rel Index 4.6 (0-4) H 03/28/19 14:11 Troponin T < 0.010 ng/mL (0.00-0.029) 03/28/19 14:11 Total Protein 6.2 g/dL (6.3-8.2) L 03/29/19 04:34 Albumin 3.3 g/dL (3.9-5) L 03/29/19 04:34 Albumin/Globulin Ratio 1.1 % 03/29/19 04:34 Triglycerides 368 mg/dL (2-149) H 03/29/19 04:34 Cholesterol 305 mg/dL (50-199) H 03/29/19 04:34 LDL Cholesterol Direct 233 mg/dL (50-130) H 03/29/19 04:34 HDL Cholesterol 37 mg/dL (40-59) L 03/29/19 04:34 Cholesterol/HDL Ratio 8.24 % 03/29/19 04:34 Urine Color Yellow (Yellow) 03/28/19 15:09 Urine Turbidity Cloudy (Clear) 03/28/19 15:09 Urine pH 5.0 (5.0-7.0) 03/28/19 15:09 Ur Specific [place] 1.027 (1.003-1.030) 03/28/19 15:09 Urine Protein 30 mg/dl mg/dL (Negative) 03/28/19 15:09 Urine Glucose (UA) >=500 mg/dL (Negative) 03/28/19 15:09 Urine Ketones Trace mg/dL (Negative) 03/28/19 15:09 Urine Blood Negative (Negative) 03/28/19 15:09 Urine Nitrite Negative (Negative) 03/28/19 15:09 Ur Reducing Substances Not Reportable 03/28/19 15:09 Urine Bilirubin Negative (Negative) 03/28/19 15:09 Urine Ictotest Not Reportable 03/28/19 15:09 Urine Urobilinogen < 2.0 mg/dL (<2.0) 03/28/19 15:09 Ur Leukocyte Esterase Large (Negative) 03/28/19 15:09 Urine WBC (Auto) 85.0 /HPF (0.0-6.0) H 03/28/19 15:09 Urine RBC (Auto) 3.0 /HPF (0.0-6.0) 03/28/19 15:09 U Epithel Cells (Auto) 5.0 /HPF (0-13.0) 03/28/19 15:09 Urine Bacteria (Auto) 1+ /HPF (Negative) 03/28/19 15:09 Urine Mucus Few /HPF 03/28/19 15:09 Active Medications - Current Medications Current Medications: Generic Name Dose Route Start Last Admin Trade Name Freq PRN Reason Stop Dose Admin Acetaminophen 650 mg 03/28/19 20:43 Tylenol PO Q4H PRN Pain MILD(1-3)/Fever >100.5/CASTRO Aspirin 325 mg 03/28/19 21:00 03/29/19 09:47 Aspirin PO 325 mg QDAY BRIDGER Administration Atorvastatin Calcium 40 mg 03/28/19 22:00 03/28/19 23:28 Lipitor PO 40 mg QHS BRIDGER Administration Enoxaparin Sodium 40 mg 03/30/19 10:00 Lovenox SUB-Q QDAY@1000 BRIDGER Hydromorphone HCl 0.5 mg 03/28/19 20:43 Dilaudid IV Q3H PRN Pain , Severe (7-10) Sodium Chloride 1,000 mls @ 75 mls/hr 03/28/19 21:00 03/29/19 05:17 Nacl 0.9% 1000 Ml IV 75 mls/hr DIRECT BRIDGER Administration Ceftriaxone Sodium 2 gm in 100 mls @ 200 mls/hr 03/29/19 10:00 03/29/19 09:45 Rocephin/Ns 2 Gm/100 Ml IV 200 mls/hr Q24HR BRIDGER Administration Protocol Insulin Glargine 15 units 03/28/19 22:00 03/28/19 23:29 Lantus SUB-Q 15 units QHS BRIDGER Administration Insulin Human Lispro 0 unit 03/28/19 22:00 03/29/19 12:51 Humalog SUB-Q 1 unit ACHS BRIDGER Administration Protocol Metformin HCl 500 mg 03/28/19 22:00 03/29/19 09:46 Glucophage PO 500 mg BIDDIAB BRIDGER Administration Ondansetron HCl 4 mg 03/28/19 20:43 Zofran IV Q8H PRN Nausea And Vomiting Oxycodone/Acetaminophen 1 tab 03/28/19 20:43 03/29/19 11:43 Percocet 5/325 PO 1 tab Q6H PRN Administration Pain, Moderate (4-6) Sodium Chloride 10 ml 03/28/19 22:00 03/29/19 09:47 Sodium Chloride Flush Syringe 10 Ml IV 10 ml BID BRIDGER Administration Sodium Chloride 10 ml 03/28/19 20:43 Sodium Chloride Flush Syringe 10 Ml IV PRN PRN LINE FLUSH Nutrition/Malnutrition Assess - Dietary Evaluation Nutrition/Malnutrition Findings: Nutrition Notes Start: 03/29/19 10:00 Freq: Status: Active Protocol: Document 03/29/19 10:00 BRITTANEY (Rec: 03/29/19 10:39 BRITTANEY [id number]) Co-Sign 03/29/19 10:00 LP Nutrition Notes Need for Assessment generated from: MD Order,manager club,MST, Education Initial or Follow up Brief Note Current Diagnosis Diabetes,Hypertension,Stroke Other Pertinent Diagnosis SIRS, UTI, Peripheral Neuropathy Current Diet Cardiac Labs/Tests Glu 296 A1C 13 Triglycerides 368 Cholesterol 305 Pertinent Medications Reviewed Subjective/Other Information Pt was in ECHO and MRI. Burn Absent Trauma Absent Nutrition Intervention Change Diet Order: Cardiac/Carb Consistent Follow-Up By: 03/30/19 Additional Comments F/U for DM diet education
--- NOTE | 2019-03-29 17:14 | Consultation ---
History of Present Illness Consult date: 03/29/19 Reason for Consult: Stroke Chief complaint: Left leg weakness History of present illness: Patient is 63-year-old woman with a history of previous stroke with residual right upper and lower extremity pain and paresthesias, hypertension, diabetes mellitus, depression, history of spinal cord stimulator placement. On 12/2018, patient states that she had onset of left leg weakness, and found that she was unsteady when trying to walk. She states that symptoms have persisted since then, however have slightly improved. Patient was noncompliant with aspirin, and states that she was taking it about every other day. Patient also is a current smoker area she was found to have a UTI on admission. Past History Past Medical History: other (history of previous stroke with residual right upper and lower extremity pain and paresthesias, hypertension, diabetes mellitus, depression, history of spinal cord stimulator placement) Social history: smoking Family history: no significant family history Medications and Allergies Allergies Allergy/AdvReac Type Severity Reaction Status Date / Time No Known Allergies Allergy Verified 01/02/19 17:57 Home Medications Medication Instructions Recorded Confirmed Last Taken Type Amlodipine Besylate/Benazepril 1 each PO QDAY 03/28/19 03/28/19 03/28/19 History [Amlodipine-Benazepril 10-40 mg] DULoxetine [Cymbalta] 30 mg PO QDAY 03/28/19 03/28/19 03/28/19 History Gabapentin [Neurontin] 600 mg PO Q8H 03/28/19 03/28/19 03/27/19 History Ibuprofen [Motrin] 800 mg PO Q8HR PRN 03/28/19 03/28/19 03/27/19 History Triamter/Hctz 37.5-25 mg 2 tab PO QDAY 03/28/19 03/28/19 03/28/19 History [Maxzide-25] traMADol [Ultram] 50 mg PO Q6HR PRN 03/28/19 03/28/19 03/27/19 History Active Meds: Active Medications Acetaminophen (Tylenol) 650 mg PO Q4H PRN PRN Reason: Pain MILD(1-3)/Fever >100.5/CASTRO Aspirin (Aspirin) 325 mg PO QDAY [facility] Last Admin: 03/29/19 09:47 Dose: 325 mg Documented by: Atorvastatin Calcium (Lipitor) 40 mg PO QHS [facility] Last Admin: 03/28/19 23:28 Dose: 40 mg Documented by: Enoxaparin Sodium (Lovenox) 40 mg SUB-Q QDAY@1000 [facility] Hydromorphone HCl (Dilaudid) 0.5 mg IV Q3H PRN PRN Reason: Pain , Severe (7-10) Sodium Chloride (Nacl 0.9% 1000 Ml) 1,000 mls @ 75 mls/hr IV DIRECT [facility] Last Admin: 03/29/19 05:17 Dose: 75 mls/hr Documented by: Ceftriaxone Sodium (Rocephin/Ns 2 Gm/100 Ml) 2 gm in 100 mls @ 200 mls/hr IV Q24HR [facility]; Protocol Last Admin: 03/29/19 09:45 Dose: 200 mls/hr Documented by: Insulin Glargine (Lantus) 15 units SUB-Q QHS [facility] Last Admin: 03/28/19 23:29 Dose: 15 units Documented by: Insulin Human Lispro (Humalog) 0 unit SUB-Q ACHS [facility]; Protocol Last Admin: 03/29/19 12:51 Dose: 1 unit Documented by: Metformin HCl (Glucophage) 500 mg PO BIDDIAB [facility] Last Admin: 03/29/19 09:46 Dose: 500 mg Documented by: Ondansetron HCl (Zofran) 4 mg IV Q8H PRN PRN Reason: Nausea And Vomiting Oxycodone/Acetaminophen (Percocet 5/325) 1 tab PO Q6H PRN PRN Reason: Pain, Moderate (4-6) Last Admin: 03/29/19 11:43 Dose: 1 tab Documented by: Sodium Chloride (Sodium Chloride Flush Syringe 10 Ml) 10 ml IV BID [facility] Last Admin: 03/29/19 09:47 Dose: 10 ml Documented by: Sodium Chloride (Sodium Chloride Flush Syringe 10 Ml) 10 ml IV PRN PRN PRN Reason: LINE FLUSH Review of Systems All systems: negative Neurological: weakness, parathesias, burning pain Physical Examination - Vital Signs Vital Signs: Vital Signs Temp Pulse Resp BP Pulse Ox 98.2 F 91 H 20 144/59 97 03/28/19 14:09 03/28/19 14:09 03/28/19 14:09 03/28/19 14:09 03/28/19 14:09 - Physical Exam Narrative exam: Patient is awake, alert, oriented and swore. Follows complex commands. PERRL, [place] full, no facial weakness noted, decreased to light touch on the right side of the face which is chronic, tongue midline. 5/5 strength in bilateral upper extremities and right lower extremity, 4/5 strength in left lower extremity. Decreased light touch on right upper and lower extremity. Bilaterally intact to [id number] and [id number]. 2+ reflexes throughout. - Constitutional General appearance: uncomfortable - EENT EENT: Present: ATNC, PERRL, mucous membranes moist, hearing intact, vision intact - Respiratory Respiratory: Present: lungs clear, normal breath sounds - Cardiovascular Cardiovascular: Present: regular rate, normal S1, normal S2 Extremities: Present: no clubbing, cyanosis, no inflammation - Gastrointestinal Gastrointestinal: Present: normoactive bowel sounds, soft, non-tender - Integumentary Integumentary: Present: normal - Musculoskeletal Musculoskeletal: Present: no fluid collection, normal range of motion - Psychiatric Psychiatric: Present: mood/affect appropriate - Level of Consciousness 1a. Level of Consciousness: alert/keenly responsive - LOC Questions 1b. LOC Questions: answers both correctly - LOC Command 1c. LOC Commands: performs tasks correctly - Best Gaze 2. Best Gaze: normal - Visual 3. Visual: no visual loss - Facial Palsy 4. Facial Palsy: normal symmetrical movement - Motor Arm 5a. Motor Arm Left: no drift 5b. Motor Arm Right: no drift - Motor Leg 6a. Motor Leg Left: no drift 6b. Motor Leg Right: no drift - Limb Ataxia 7. Limb Ataxia: absent - Sensory 8. Sensory: mild/moderate sensory loss - Best Language 9. Best Language: no aphasia - Dysarthria 10. Dysarthria: normal - Extinction and Inattention 11. Extinction/Inattention: no abnormality - Scoring Total Score: 1 Stroke Severity: Minor Stroke Results - Laboratory Findings CBC and BMP: 03/29/19 04:34 03/29/19 04:34 Abnormal Lab Findings: Abnormal Labs 03/28/19 03/28/19 03/28/19 14:11 14:11 14:11 RBC 3.47 L MCV 98 H RDW 16.4 H Plt Count 472 H [place] % (Auto) [place] # BUN Creatinine Glucose POC Glucose Hemoglobin A1c 13.0 H Lactic Acid Calcium ALT CK-MB (CK-2) Rel Index 4.6 H Total Protein Albumin Triglycerides Cholesterol LDL Cholesterol Direct HDL Cholesterol Urine WBC (Auto) 03/28/19 03/28/19 03/28/19 14:16 15:09 16:43 RBC MCV RDW Plt Count [place] % (Auto) [place] # BUN Creatinine Glucose POC Glucose 401 H Hemoglobin A1c Lactic Acid 2.20 H* Calcium ALT CK-MB (CK-2) Rel Index Total Protein Albumin Triglycerides Cholesterol LDL Cholesterol Direct HDL Cholesterol Urine WBC (Auto) 85.0 H 03/28/19 03/28/19 03/28/19 19:02 20:42 21:34 RBC MCV RDW Plt Count [place] % (Auto) [place] # BUN Creatinine Glucose POC Glucose 355 H Hemoglobin A1c Lactic Acid 2.10 H* 2.10 H* Calcium ALT CK-MB (CK-2) Rel Index Total Protein Albumin Triglycerides Cholesterol LDL Cholesterol Direct HDL Cholesterol Urine WBC (Auto) 03/28/19 03/29/19 03/29/19 23:46 04:34 04:34 RBC 3.27 L MCV 99 H RDW 16.5 H Plt Count [place] % (Auto) 10.8 H [place] # 1.0 H BUN 19 H Creatinine 0.6 L Glucose 296 H POC Glucose Hemoglobin A1c Lactic Acid 2.80 H* Calcium 8.3 L ALT < 5 L CK-MB (CK-2) Rel Index Total Protein 6.2 L Albumin 3.3 L Triglycerides 368 H Cholesterol 305 H LDL Cholesterol Direct 233 H HDL Cholesterol 37 L Urine WBC (Auto) 03/29/19 12:28 RBC MCV RDW Plt Count [place] % (Auto) [place] # BUN Creatinine Glucose POC Glucose 280 H Hemoglobin A1c Lactic Acid Calcium ALT CK-MB (CK-2) Rel Index Total Protein Albumin Triglycerides Cholesterol LDL Cholesterol Direct HDL Cholesterol Urine WBC (Auto) Assessment and Plan Patient is 63-year-old woman with a history of previous stroke with residual right upper and lower extremity pain and paresthesias, hypertension, diabetes mellitus, depression, history of spinal cord stimulator placement, who p/w LLE weakness. According to the patient's clinical findings, it is possible that she has had an acute ischemic stroke. Plan: 1. Stroke: - Unable to perform MRI as patient has spinal cord stimulator, and it would not be able to be turned on and off before and after the MRI at this facility. - Initial CT head showed previous left thalamic stroke. - Repeat CT had as unable to perform MRI. - Echo pending. Check CTA head and neck, to further assess the degree of stenosis of right internal carotid artery. Carotid ultrasound revealed 50-69% right ICA stenosis. - Continue aspirin. Atorvastatin 80 mg daily. Current LDL 233. Goal LDL less than 70. - PT/OT/ST DVT prophylaxis: Recommend Lovenox. Telemetry monitoring while in-house. - Recommend consult vascular surgery for evaluation of Rt. ICA stenosis, as patient may be candidate for CEA. 2. Hypertension: - Recommend target BP of normotension, as it has been >48 hours since onset of symptoms. Will continue to monitor the patient's neurologic status. Thank you for allowing me to take part in the care of this patient. Marquez Sutton MD Neurology
--- NOTE | 2019-03-29 19:56 | Cat Scan Report ---
CT HEAD WITHOUT CONTRAST INDICATION / CLINICAL INFORMATION: Stroke. TECHNIQUE: All CT scans at this location are performed using CT dose reduction for ALARA by means of automated e xposure control. COMPARISON: Head CT 03/28/2019 FINDINGS: Persistent microvascular ischemic changes are noted. Chronic small deep infarctions are identified in the thalamic bilaterally. Decreased attenuation in the anterior limb of the internal capsule is less well demonstrated on today's study. There is no indication of intracranial hemorrhage or extra-axial fluid collection. Extensively calcified atherosclerotic plaque is observed along the cavernous segments of both interna l carotid arteries. If recent infarction remains a clinical concern consideration should be given to MRI brain to include diffusion-weighted scans. IMPRESSION: 1. No definite interval change compared to study dated 03/28/2019. If recent infarction remains a clin ical concern consideration should be given to MRI brain to include diffusion-weighted imaging. Signer Name: Mike William MD Signed: 03/29/2019 7:52 PM Workstation Name: [id number]
--- NOTE | 2019-03-29 20:12 | Cat Scan Report ---
CTA head with intravenous contrast CLINICAL HISTORY: Stroke TECHNIQUE: 0.625 mm thick contiguous axial scans were obtained from the skull base to the skull vertex during ra pid bolus administration of intravenous contrast material. Multiplanar reconstructions were produced in the coronal and sagittal planes. In addition 3 plane MIP instructions were produced and reviewed f or this report. The axial source images and reconstructed images were reviewed for this report. All CT scans at this location are performed using CT dose reduction for ALARA by means of automated e xposure control. FINDINGS: Calcified atherosclerotic plaque is present along the course of the cavernous segments of both journalism intern al carotid arteries. There is no associated stenosis. No indication of intracranial stenosis or large vessel occlusion. Anterior cerebral and middle cerebr al arteries have an unremarkable appearance. Evaluation of the posterior circulation reveals mild dominance of the right vertebral artery. Both ve rtebral arteries contribute to the basilar artery origin. Basilar artery has an unremarkable appearan ce. An intact [place] of [place] is noted with anterior communicating arteries and bilateral posterior comm unicating arteries demonstrated bilaterally.. There is no evidence of aneurysm or other vascular malformation. IMPRESSION: 1. No indication of intracranial stenosis or large vessel occlusion. CONTRAST DOSE REPORT: Omnipaque 350: 100 ml administered intravenously. Signer Name: Mike William MD Signed: 03/29/2019 8:07 PM Workstation Name: [id number]
--- NOTE | 2019-03-29 20:23 | Cat Scan Report ---
CTA neck without and with intravenous contrast material CLINICAL HISTORY: Stroke TECHNIQUE: Following acquisition of a timing bolus 0.63 mm thick contiguous axial scans were obtained from aorti c arch to the skull base during rapid bolus intravenous contrast infusion. In addition to evaluation of axial source images multiplanar reconstructions were produced and reviewed for this report. 3 plan e MIP reconstructions were produced and reviewed. FINDINGS: Thoracic aorta: Calcified atherosclerotic plaque is observed along the descending thoracic aorta and at the origin of the left subclavian, left carotid and brachiocephalic arteries. There is no associat ed stenosis. Brachiocephalic artery has an otherwise normal appearance. No abnormalities are seen in evaluation of the right or left subclavian arteries. Right carotid artery: Right common carotid artery has an unremarkable appearance. Evaluation of the r ight carotid bifurcation is remarkable for the presence of calcified atherosclerotic plaque which is not associated with stenosis. Cervical segments of the R ICA have an unremarkable appearance. Left carotid artery: A small amount of soft plaque is seen along the lateral margin of the left commo n carotid artery at the level of the hyoid bone. There is no indication of hemodynamically significan t stenosis. No abnormalities are seen at the carotid bifurcation. The left internal carotid artery is tortuous swinging medially to deform the posterior lateral wall of the nasopharynx on the left. The cervical segments of the LICA have an otherwise unremarkable appearance. The right vertebral artery is dominant. Atherosclerotic disease is present at the origin of the righ t vertebral artery where a 50% stenosis is identified. No indication of atherosclerotic disease along the course of the left vertebral artery. Both vertebral arteries contribute to the basilar artery or igin. The degree of stenosis, if any, is determined utilizing NASCET like criteria. In this case there is no indication of hemodynamically significant stenosis at the carotid bifurcations or elsewhere.. There is a large (3.2 x 3.2 x 5.0 cm) mass in the superior mediastinum along the anterior right later al aspect of the trachea. This measures about 10 Hounsfield units in density. This could be a broncho genic cyst. Further evaluation with chest CT without contrast or MRI thorax would be useful for furth er evaluation. Several thyroid nodules are identified. These measure less than 9 mm in greatest dimension. No furthe r evaluation is required. Evaluation of the nonvascular soft tissue structures reveal no additional abnormality. There is no in dication of cervical lymphadenopathy. No abnormalities are seen along the course of the airway. Visua lized portions of the parotid glands and the submandibular salivary glands have a normal appearance. Evaluation of the lung apices reveals no evidence of lung nodule or infiltrate. Evaluation of the cer vical spine revealed no significant abnormalities. IMPRESSION: 1. Large low-attenuation superior mediastinal mass. Further evaluation is required. 2. No indication of hemodynamically significant stenosis at the carotid bifurcations or elsewhere. Contrast dose report: Omnipaque 350: 100 ml, administered intravenously All CT examinations performed at this facility utilize modulated dose reduction, iterative reconstruc tion or weight-based dosing, as appropriate, to obtain a radiation dose which is as low as can reason ably be achieved. Signer Name: Mike William MD Signed: 03/29/2019 8:19 PM Workstation Name: [id number]
[2019-03-29] MEDS: INSULIN GLARGINE 100 UNITS/ML SUB-Q SCH (22:50)
[2019-03-29] MEDS: GABAPENTIN 300 MG CAP PO SCH (22:50)
[2019-03-29] MEDS: traMADol 50 MG TAB PO PRN (23:21)
[2019-03-30] MEDS: metFORMIN 500 MG TAB PO SCH (08:59)
[2019-03-30] MEDS: INSULIN LISPRO 100 UNIT/ML SUB-Q SCH ×2 (08:59→13:15)
[2019-03-30] MEDS ORDERED: ENOXAPARIN 40 MG/0.4 ML INJ SUB-Q SCH (10:00)
[2019-03-30] MEDS ORDERED: DULoxetine 30 MG CAP PO SCH (10:00)
[2019-03-30] MEDS: ASPIRIN 325 MG TAB PO SCH (10:47)
[2019-03-30] MEDS: cefTRIAXone/NS 2 GM/100 ML 2 GM/100 ML BAG IV SCH (10:47)
--- NOTE | 2019-03-30 10:52 | Consultation ---
History of Present Illness - Reason for Consult Consult date: 03/30/19 Carotid Stenosis - History of Present Illness HPI: 63yo female with significant hx for PVD currently hospitalized after an episode of right sided facial numbness and left lower extremity weakness that lasted < 24hours. The patient has hx of previous CVA x2 with associated right sided weakness which has since resolved. The patient also with hx of [id number] bypass that was performed approx. 4 years ago at an outside institution but has been lost to follow-up due to moving. The patient experiences right leg pain with ambulation after approx 1 block. The patient currently smokes 1/2 ppd for the past 25 years. PE: NAD, A&Ox3 non-labored respirations RRR abd soft, nt, nd, well healed midline scar palpable femoral pulses unable to palpate pedal pulses, but feet arm warm CN II-XII intact, extremity strength 5/5 throughout Carotid duplex reviewed Neck CTA reviewed Plan: Patient presents with TIA possible CVA, MRI not performed carotid duplex concerning for right-sided moderate carotid stenosis but CTA demonstrates no significant disease no surgical intervention warranted, would continue to with medical management Patient also with symptoms of lower extremity claudication, this can be managed as an outpatient will have patient follow-up in clinic ok to d/c from my standpoint once medically cleared Past History Past Medical History: other (history of previous stroke with residual right upper and lower extremity pain and paresthesias, hypertension, diabetes mellitus, depression, history of spinal cord stimulator placement) Social history: smoking Family history: no significant family history Medications and Allergies Allergies Allergy/AdvReac Type Severity Reaction Status Date / Time No Known Allergies Allergy Verified 01/02/19 17:57 Home Medications Medication Instructions Recorded Confirmed Last Taken Type Amlodipine Besylate/Benazepril 1 each PO QDAY 03/28/19 03/28/19 03/28/19 History [Amlodipine-Benazepril 10-40 mg] DULoxetine [Cymbalta] 30 mg PO QDAY 03/28/19 03/28/19 03/28/19 History Gabapentin [Neurontin] 600 mg PO Q8H 03/28/19 03/28/19 03/27/19 History Ibuprofen [Motrin] 800 mg PO Q8HR PRN 03/28/19 03/28/19 03/27/19 History Triamter/Hctz 37.5-25 mg 2 tab PO QDAY 03/28/19 03/28/19 03/28/19 History [Maxzide-25] traMADol [Ultram] 50 mg PO Q6HR PRN 03/28/19 03/28/19 03/27/19 History Active Meds: Active Medications Acetaminophen (Tylenol) 650 mg PO Q4H PRN PRN Reason: Pain MILD(1-3)/Fever >100.5/CASTRO Aspirin (Aspirin) 325 mg PO QDAY [facility] Last Admin: 03/29/19 09:47 Dose: 325 mg Documented by: Atorvastatin Calcium (Lipitor) 80 mg PO QHS [facility] Last Admin: 03/29/19 22:50 Dose: 80 mg Documented by: Duloxetine HCl (Cymbalta) 30 mg PO QDAY [facility] Enoxaparin Sodium (Lovenox) 40 mg SUB-Q QDAY@1000 [facility] Gabapentin (Neurontin) 600 mg PO Q8H [facility] Last Admin: 03/29/19 22:50 Dose: 600 mg Documented by: Hydromorphone HCl (Dilaudid) 0.5 mg IV Q3H PRN PRN Reason: Pain , Severe (7-10) Sodium Chloride (Nacl 0.9% 1000 Ml) 1,000 mls @ 75 mls/hr IV DIRECT [facility] Last Admin: 03/29/19 05:17 Dose: 75 mls/hr Documented by: Ceftriaxone Sodium (Rocephin/Ns 2 Gm/100 Ml) 2 gm in 100 mls @ 200 mls/hr IV Q24HR [facility]; Protocol Last Admin: 03/29/19 09:45 Dose: 200 mls/hr Documented by: Insulin Glargine (Lantus) 15 units SUB-Q QHS [facility] Last Admin: 03/29/19 22:50 Dose: 15 units Documented by: Insulin Human Lispro (Humalog) 0 unit SUB-Q ACHS [facility]; Protocol Last Admin: 03/30/19 08:59 Dose: 3 unit Documented by: Metformin HCl (Glucophage) 500 mg PO BIDDIAB [facility] Last Admin: 03/30/19 08:59 Dose: 500 mg Documented by: Ondansetron HCl (Zofran) 4 mg IV Q8H PRN PRN Reason: Nausea And Vomiting Sodium Chloride (Sodium Chloride Flush Syringe 10 Ml) 10 ml IV BID [facility] Last Admin: 03/29/19 22:50 Dose: 10 ml Documented by: Sodium Chloride (Sodium Chloride Flush Syringe 10 Ml) 10 ml IV PRN PRN PRN Reason: LINE FLUSH Tramadol HCl (Ultram) 50 mg PO Q6H PRN PRN Reason: PAIN Last Admin: 03/29/19 23:21 Dose: 50 mg Documented by: Exam - Constitutional Vitals: Temp Pulse Resp BP Pulse Ox 98.5 F 62 18 139/58 95 03/30/19 07:28 03/30/19 08:39 03/30/19 07:28 03/30/19 07:28 03/30/19 08:15 Results - Labs CBC & Chem 7: 03/29/19 04:34 03/29/19 04:34 Labs: Abnormal lab results 03/29/19 03/29/19 Range/Units 12:28 16:47 POC Glucose 280 H 320 H (70-105)
[2019-03-30] MEDS: traMADol 50 MG TAB PO PRN (10:56)
[2019-03-30 11:50] VITALS: BP 178/73
--- NOTE | 2019-03-30 12:49 | Progress Note ---
Assessment and Plan Patient is 63-year-old woman with a history of previous stroke with residual right upper and lower extremity pain and paresthesias, hypertension, diabetes mellitus, depression, history of spinal cord stimulator placement, who p/w LLE weakness. According to the patient's clinical findings, it is possible that she has had an acute ischemic stroke. Plan: 1. TIA: - Unable to perform MRI as patient has spinal cord stimulator, and it would not be able to be turned on and off before and after the MRI at this facility. - Initial CT head showed previous left thalamic stroke. - Repeat CT did not show any evidence of ischemic stroke - Echo pending. Check CTA head and neck: did not show any signficant stenosis. Carotid ultrasound revealed 50-69% right ICA stenosis, however CTA neck did not show any significant stenosis. - Continue aspirin. Atorvastatin 80 mg daily. Current LDL 233. Goal LDL less than 70. - PT/OT/ST DVT prophylaxis: Recommend Lovenox. Telemetry monitoring while in-house. - Patient is not felt to be a CEA candidate at this time, as there is no significant stenosis on CTA neck/head. 2. Hypertension: - Recommend target BP of normotension, as it has been >48 hours since onset of symptoms. 3. UTI: - Cont. treatment per primary team 4. Superior mediastinal mass: - CTA neck/head showed large superior mediastinal mass and thyroid nodules. - Recommend further workup and management per primary team. Will continue to monitor the patient's neurologic status. Thank you for allowing me to take part in the care of this patient. Marquez Sutton MD Neurology Subjective Date of service: 03/30/19 Principal diagnosis: TIA Interval history: No acute events overnight. RLE weakness resolved today. Objective - Exam Narrative Exam: Patient is awake, alert, oriented and swore. Follows complex commands. PERRL, visual [place] full, no facial weakness noted, decreased to light touch on the right side of the face which is chronic, tongue midline. 5/5 strength in bilateral upper extremities and right lower extremity, 5/5 strength in left lower extremity. Decreased light touch on right upper and lower extremity (chronic). Bilaterally intact to [id number] and [id number]. 2+ reflexes throughout. - Vital Sign Vital Signs - 12hr 03/30/19 03/30/19 03/30/19 03:36 03:38 07:28 Temperature 98.6 F 98.5 F Pulse Rate 80 69 Respiratory 18 18 Rate Blood Pressure 167/82 139/58 O2 Sat by Pulse 95 96 Oximetry 03/30/19 03/30/19 03/30/19 08:15 08:39 11:05 Temperature 98.3 F Pulse Rate 62 68 Respiratory 18 Rate Blood Pressure 178/73 O2 Sat by Pulse 95 92 Oximetry - General Apperance Constitutional: comfortable - EENT EENT: ATNC, PERRL, mucous membranes moist, hearing intact, vision intact - Respiratory Respiratory: lungs clear, normal breath sounds - Cardiovascular Cardiovascular: regular rate, normal S1, normal S2 Extremities: no clubbing, cyanosis, no inflammation - Gastrointestinal Gastrointestinal: normoactive bowel sounds, soft, non-tender - Integumentary Integumentary: normal - Musculoskeletal Musculoskeletal: no fluid collection, normal range of motion - Psychiatric Psychiatric: mood/affect appropriate - Laboratory Findings CBC and BMP: 03/29/19 04:34 03/29/19 04:34 Abnormal Lab Findings: Abnormal Labs 03/28/19 03/28/19 03/28/19 14:11 14:11 14:11 RBC 3.47 L MCV 98 H RDW 16.4 H Plt Count 472 H [place] % (Auto) [place] # BUN Creatinine Glucose POC Glucose Hemoglobin A1c 13.0 H Lactic Acid Calcium ALT CK-MB (CK-2) Rel Index 4.6 H Total Protein Albumin Triglycerides Cholesterol LDL Cholesterol Direct HDL Cholesterol Urine WBC (Auto) 03/28/19 03/28/19 03/28/19 14:16 15:09 16:43 RBC MCV RDW Plt Count [place] % (Auto) [place] # BUN Creatinine Glucose POC Glucose 401 H Hemoglobin A1c Lactic Acid 2.20 H* Calcium ALT CK-MB (CK-2) Rel Index Total Protein Albumin Triglycerides Cholesterol LDL Cholesterol Direct HDL Cholesterol Urine WBC (Auto) 85.0 H 03/28/19 03/28/19 03/28/19 19:02 20:42 21:34 RBC MCV RDW Plt Count [place] % (Auto) [place] # BUN Creatinine Glucose POC Glucose 355 H Hemoglobin A1c Lactic Acid 2.10 H* 2.10 H* Calcium ALT CK-MB (CK-2) Rel Index Total Protein Albumin Triglycerides Cholesterol LDL Cholesterol Direct HDL Cholesterol Urine WBC (Auto) 03/28/19 03/29/1919 23:46 04:34 04:34 RBC 3.27 L MCV 99 H RDW 16.5 H Plt Count [place] % (Auto) 10.8 H [place] # 1.0 H BUN 19 H Creatinine 0.6 L Glucose 296 H POC Glucose Hemoglobin A1c Lactic Acid 2.80 H* Calcium 8.3 L ALT < 5 L CK-MB (CK-2) Rel Index Total Protein 6.2 L Albumin 3.3 L Triglycerides 368 H Cholesterol 305 H LDL Cholesterol Direct 233 H HDL Cholesterol 37 L Urine WBC (Auto) 03/29/19 03/29/19 03/30/19 12:28 16:47 12:16 RBC MCV RDW Plt Count [place] % (Auto) [place] # BUN Creatinine Glucose POC Glucose 280 H 320 H 217 H Hemoglobin A1c Lactic Acid Calcium ALT CK-MB (CK-2) Rel Index Total Protein Albumin Triglycerides Cholesterol LDL Cholesterol Direct HDL Cholesterol Urine WBC (Auto)
[2019-03-30] MEDS: GABAPENTIN 300 MG CAP PO SCH (13:17)
--- NOTE | 2019-03-30 13:33 | Discharge Summary ---
Providers - Providers Date of Admission: 03/28/19 20:43 Date of discharge: 03/30/19 Attending physician: ANDREINA UREÑA 03/28/19 20:43 Consult to Physician [CONS] Routine Comment: Consulting Provider: AURELIANO BARNES Physician Instructions: Reason For Exam: CVA/TIA 03/28/19 20:56 Occupational Therapy Evaluate and Treat [CONS] Routine Comment: Reason For Exam: Neuro deficits Physical Therapy Evaluation and Treat [CONS] Routine Comment: Reason For Exam: Neuro deficits 03/28/19 21:40 Consult to Dietitian/Nutrition [CONS] Routine Physician Instructions: Reason For Exam: New onset diabetes Reason for Consult: Nutrition Recommendations Reason for Consult: Diet education 03/29/19 17:42 Consult to Physician [CONS] Routine Comment: Consulting Provider: RADHA CASTRO Physician Instructions: Reason For Exam: Carotid Stenosis Primary care physician: LINETTE KO Hospitalization Condition: Stable Hospital course: Patient is a 63-year-old -[place] 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 The symptoms are persistent with left- sided numbness of the face and left lower exudate weakness which is improved to some extent. Patient has no residual weakness on the right side from previous CVA's. Unable to do MRI due to nerve stimulator. (PCP Dr. Ko who patient notified me today, she did not know his name, she went into her cell phone and showed my Dr. Ko, whom I then called on cell phone, no answer) Discharge Diagnoses: -Acute ischemic stroke/CVA with left facial sensory deficit -Carotid Stenosis -Sepsis UTI -Multi-Drug Resistant E. coli UTI: home on Bactrim or Ceftin -Hypertension -Peripheral Neuropathy -Tobacco dependency, I anger control counselor on stopping, she ok with Nicotine patch 1/2ppd -Depression by history Disposition: -01 TO HOME OR SELFCARE Time spent for discharge: 36 minutes Core Measure Documentation - Palliative Care Palliative Care/ Comfort Measures: Not Applicable - Core Measures Any of the following diagnoses?: stroke - VTE Discharge Requirements Deep Vein Thrombosis/Pulmonary Embolism Present on Admission: No Has pt received <5 days of overlap therapy or INR<2.0: No Anticoagulant overlap therapy prescribed at discharge: No Contraindication No Overlap Therapy order at DC: Not Indicated - Stroke Discharge Requirements Statin for LDL = or >70 mg/dl on DC: Yes Anticoag for atrial fib/atrial flutter: Not Applicable Reason for no anticoag for AF/F on DC: Not Indicated Antithrombotic for ischemic stroke: Yes Exam - Physical Exam Narrative exam: Gen: WDWN, NAD, Awake, Alert, Orientated HEENT: NCAT, EOMI, PERRL, OP Clear Neck: supple, no adenopathy, no thyromegaly, no JVD CVS/Heart: RRR, normal S1S2, pulses present bilaterally Chest/Lungs: CTA B, Symmetrical chest expansion, good air entry bilaterally GI/Abdomen: soft, NTND, good bowel sounds, no guarding or rebound /Bladder: no suprapubic tenderness, no CVA or paraspinal tenderness Extermity/Skin: no c/c/e, no obvious rash MSK: FROM x 4 Neuro: CN 2-12 grossly intact, facial asym, left leg dragging, old right slight reduced muscle strength Psych: calm - Constitutional Vitals: Temp Pulse Resp BP Pulse Ox 98.3 F 68 18 178/73 92 03/30/19 11:05 03/30/19 11:05 03/30/19 11:05 03/30/19 11:05 03/30/19 11:05 Plan Activity: up only with assistance, fall precautions, other (no strenous activity) Diet: low salt Special Instructions: smoking cessation Follow up with: LINETTE KO MD [Primary Care Provider] - 7 Days GEORGIE CUMMINS MD [Staff Physician] - 04/04/19 11:15 am Prescriptions: Atorvastatin Calcium [Lipitor] 80 mg PO QHS #30 tablet Aspirin 325 mg PO QDAY #30 tablet cefUROXime [Ceftin] 2 tab PO BID #20 tablet
== END 2019-03-30 17:00 | disposition home or self-care (01) | DRG 871 ==
LOC: ED 14:00 → 4A 20:43
PROVIDERS: ADMIT Internal Medicine; ATTEND Internal Medicine
DX: A41.9 Sepsis, unspecified organism (principal); I63.9 Cerebral infarction, unspecified; J98.59 Other diseases of mediastinum, not elsewhere classified; N30.00 Acute cystitis without hematuria; Z16.24 Resistance to multiple antibiotics; I10 Essential (primary) hypertension; F17.210 Nicotine dependence, cigarettes, uncomplicated; E11.42 Type 2 diabetes mellitus with diabetic polyneuropathy; F32.9 Major depressive disorder, single episode, unspecified; B96.20 Unspecified Escherichia coli [E. coli] as the cause of diseases classified elsewhere; I65.21 Occlusion and stenosis of right carotid artery; Z95.1 Presence of aortocoronary bypass graft; Z86.73 Personal history of transient ischemic attack (TIA), and cerebral infarction without residual deficits; Z79.4 Long term (current) use of insulin
CPT/HCPCS: 36415; 70450; 70496; 70498; 80053; 80061; 81001; 82140; 82550; 82553; 82962; 83036; 84484; 85025; 85610; 85670; 85730; 87040; 87076; 87086; 87186; 90686; 93005; 93010; 93306; 93880; 96365; 96375; 99406; G0378; A9270-GY; J0696; J1170; J1650; J1815; J7030; Q9967

== ENCOUNTER 2019-08-12 10:34 | Observation (INO) | payer MEDICARE ==
--- NOTE | 2019-08-12 11:24 | Emergency Department Report ---
ED Neuro Deficit HPI - General Chief Complaint: Neuro Symptoms/Deficit Stated Complaint: DOUBLE VISION Source: patient Mode of arrival: Ambulatory Limitations: No Limitations - History of Present Illness Initial Comments: This is a 64-year-old female who arrives complaining of double vision. She states that she has had this problem intermittently for the last 2 weeks. She states sometimes she sees to television screens. The problem appears to be worse when she looks to the left. She also thinks the problem is worse in her left thigh. There perhaps was some confusion about the history. However it is clear that the patient has had intermittent symptoms for 2 weeks. She states that the problem became more constant when she woke up this a.m. Patient states that she has had frequent falls. She has not passed out. She states that she has had some bruising to her right lower extremity. She states that she does have a cane but she does not use it. Likewise she does not use a walker. She does not report any difficulty in walking or problems with her speech. She does not report any acute motor or sensory deficit. She states that she is weak on her right side somewhat from an old "left thalamic stroke". She also states that she has a "post thalamic stroke pain syndrome". She states that this pain is chronic affects her lower extremities and is relieved by a combination of gabapentin, ibuprofen and tramadol. She does not complain of acute pain. The patient admits to noncompliance with her insulin. She states that she could not afford her Lantus. She admits that she has not attempted to get her regular insulin. She states that she has been to her primary care doctor about a month ago. She has been compliant with her metformin. Her glucose was found to be over 350 today. -: Gradual, week(s) Location: other (Double vision) Presenting Symptoms: Absent: Weak/Paralyzed One Side, Sudden, Severe Headache, Blurred/Loss of Vision, Facial Droop/Numbness, Unable to Speak Clearly, Altered Mental Status History of same: No Place: home Severity: mild, moderate Improves With: none Worsens With: none On Anticoagulants: No Context: gradual onset Associated Symptoms: denies other symptoms, other (Frequent falls) - Related Data Home Medications: Home Medications Medication Instructions Recorded Confirmed Last Taken DULoxetine [Cymbalta] 30 mg PO QDAY 03/28/19 03/28/19 03/28/19 Gabapentin [Neurontin] 600 mg PO Q8H 03/28/19 03/28/19 03/27/19 Previous Rx's Medication Instructions Recorded Last Taken Type Amlodipine Besylate/Benazepril 1 each PO QDAY #30 03/30/19 03/28/19 Rx [Amlodipine-Benazepril 10-40 mg] Aspirin 325 mg PO QDAY #30 tablet 03/30/19 Unknown Rx Atorvastatin Calcium [Lipitor] 80 mg PO QHS #30 tablet 03/30/19 Unknown Rx Insulin Glargine [Lantus VIAL] 15 units SUB-Q QHS #1000 units 03/30/19 Unknown Rx Triamter/Hctz 37.5-25 mg 1 tab PO QDAY #30 03/30/19 03/28/19 Rx [Maxzide-25] metFORMIN [Glucophage] 500 mg PO BIDDIAB #60 tablet 03/30/19 Unknown Rx traMADoL [Ultram 50 MG tab] 50 mg PO Q6HR PRN #30 03/30/19 03/27/19 Rx Allergies/Adverse Reactions: Allergies Allergy/AdvReac Type Severity Reaction Status Date / Time No Known Allergies Allergy Verified 01/02/19 17:57 ED Review of Systems ROS: Stated complaint: DOUBLE VISION Other details as noted in HPI Constitutional: other. denies: chills, fever Eyes: denies: eye pain, eye discharge, vision change ENT: denies: ear pain, throat pain Respiratory: denies: cough, shortness of breath, wheezing Cardiovascular: denies: chest pain, palpitations Endocrine: no symptoms reported Gastrointestinal: denies: abdominal pain, nausea, diarrhea Genitourinary: denies: urgency, dysuria, discharge Musculoskeletal: denies: back pain, joint swelling, arthralgia Skin: denies: rash, lesions Neurological: as per HPI, other (Diplopia). denies: headache, weakness, numbness, paresthesias, confusion, abnormal gait Psychiatric: denies: anxiety, depression Hematological/Lymphatic: denies: easy bleeding, easy bruising ED Past Medical Hx - Past Medical History Previous Medical History?: Yes Hx Hypertension: Yes Hx CVA: Yes (2014,2015) Hx Heart Attack/AMI: No Hx Congestive Heart Failure: No Hx Diabetes: Yes Hx Deep Vein Thrombosis: No Hx Liver Disease: No Hx Arthritis: No Hx Seizures: No Hx Psychiatric Treatment: Yes (DEPRESSION) Hx Asthma: No Hx COPD: No Hx Dementia: No Additional medical history: Degenerative disc disease, INTUBATION 2016- RLL VENOUS CLOT,STRIPPED. Post stroke Thalmic syndrome - Surgical History Past Surgical History?: Yes Hx Coronary Stent: No Hx Pacemaker: No Hx Internal Defibrillator: No Additional Surgical History: AAA RESTECTION. - Social History Smoking Status: Unknown if ever smoked Substance Use Type: None - Medications Home Medications: Home Medications Medication Instructions Recorded Confirmed Last Taken Type DULoxetine [Cymbalta] 30 mg PO QDAY 03/28/19 03/28/19 03/28/19 History Gabapentin [Neurontin] 600 mg PO Q8H 03/28/19 03/28/19 03/27/19 History Amlodipine Besylate/Benazepril 1 each PO QDAY #30 03/30/19 03/28/19 03/28/19 Rx [Amlodipine-Benazepril 10-40 mg] Aspirin 325 mg PO QDAY #30 tablet 03/30/19 Unknown Rx Atorvastatin Calcium [Lipitor] 80 mg PO QHS #30 tablet 03/30/19 Unknown Rx Insulin Glargine [Lantus VIAL] 15 units SUB-Q QHS #1000 units 03/30/19 Unknown Rx Triamter/Hctz 37.5-25 mg 1 tab PO QDAY #30 03/30/19 03/28/19 03/28/19 Rx [Maxzide-25] metFORMIN [Glucophage] 500 mg PO BIDDIAB #60 tablet 03/30/19 Unknown Rx traMADoL [Ultram 50 MG tab] 50 mg PO Q6HR PRN #30 03/30/19 03/28/19 03/27/19 Rx ED Neuro Physical Exam - General Limitations: No Limitations General appearance: alert, in no apparent distress Suspected Stroke: Yes - Head Head exam: Present: atraumatic, normocephalic - Eye Eye exam: Present: normal appearance - ENT ENT exam: Present: mucous membranes moist - Neck Neck exam: Present: normal inspection, full ROM. Absent: tenderness, men ingismus - Respiratory Respiratory exam: Present: normal lung sounds bilaterally. Absent: respiratory distress - Cardiovascular Cardiovascular Exam: Present: regular rate, normal rhythm. Absent: systolic murmur, diastolic murmur, rubs, gallop - GI/Abdominal GI/Abdominal exam: Present: soft, normal bowel sounds. Absent: distended, tenderness, guarding, rebound - Extremities Exam Extremities exam: Present: normal inspection, other (No deformity) - Back Exam Back exam: Present: normal inspection - Neurological Exam Neurological exam: Present: alert, oriented X3. Absent: CN II-XII intact (There appears to be a) - NIHSS Assessment Interval: Baseline 1a. Level of Consciousness: alert/keenly responsive 1b. LOC Questions: answers both correctly 1c. LOC Commands: performs tasks correctly 2. 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 Visual: no visual loss 4. Facial Palsy: minor paralysis (Slight right facial asymmetry which is chr onic) 5b. Motor Arm Right: no drift 5a. Motor Arm Left: no drift 6a. Motor Leg Left: no drift 6b. Motor Leg Right: no drift 7. Limb Ataxia: absent 8. Sensory: mild/moderate sensory loss (It is chronic) 9. Best Language: no aphasia 10. Dysarthria: normal 11. Extinction/Inattention: no abnormality Total Score: 3 Stroke Severity: Minor Stroke - Psychiatric Psychiatric exam: Present: normal affect, normal mood - Skin Skin exam: Present: warm, dry, intact, normal color. Absent: rash ED Course Vital Signs 08/12/19 08/12/19 08/12/19 10:37 11:07 11:15 Temperature 97.7 F Pulse Rate 91 H 85 Respiratory 18 19 Rate Blood Pressure 176/81 Blood Pressure 198/68 [Right] O2 Sat by Pulse 99 98 95 Oximetry 08/12/19 11:30 Temperature Pulse Rate 73 Respiratory 19 Rate Blood Pressure 160/69 Blood Pressure [Right] O2 Sat by Pulse 94 Oximetry - Reevaluation(s) Reevaluation #1: Discussed with tele-neurologist. They think that the patient has a 3rd nerve palsy. Looks more to me like a left abducens nerve palsy. In any case I think this is likely to be a chronic diabetic neuropathy. However to complete the stroke work-up the patient will be admitted by the hospitalist service. I discussed CT findings with the tele-radiologist. The patient has old strokes in the right galarza radiata and left thalamus. 08/12/19 11:39 - Lab Data Result diagrams: 08/12/19 11:15 Lab Results 08/12/19 08/12/19 Range/Units 11:15 11:15 WBC 10.4 (4.5-11.0) K/mm3 RBC 3.90 (3.65-5.03) M/mm3 Hgb 11.9 (10.1-14.3) gm/dl Hct 35.6 (30.3-42.9) % MCV 91 (79-97) fl MCH 31 (28-32) pg MCHC 34 (30-34) % RDW 17.3 H (13.2-15.2) % Plt Count 476 H (140-440) K/mm3 Lymph % (Auto) 21.3 (13.4-35.0) % [place] % (Auto) 11.6 H (0.0-7.3) % Eos % (Auto) 1.7 (0.0-4.3) % Baso % (Auto) 0.4 (0.0-1.8) % Lymph # 2.2 (1.2-5.4) K/mm3 [place] # 1.2 H (0.0-0.8) K/mm3 Eos # 0.2 (0.0-0.4) K/mm3 Baso # 0.0 (0.0-0.1) K/mm3 Seg Neutrophils % 65.0 (40.0-70.0) % Seg Neutrophils # 6.7 (1.8-7.7) K/mm3 PT 12.8 (12.2-14.9) Sec. INR 0.95 (0.87-1.13) APTT 35.1 (24.2-36.6) Sec. Laboratory Results - last 24 hr 08/12/19 08/12/19 11:15 11:15 WBC 10.4 RBC 3.90 Hgb 11.9 Hct 35.6 MCV 91 MCH 31 MCHC 34 RDW 17.3 H Plt Count 476 H Lymph % (Auto) 21.3 [place] % (Auto) 11.6 H Eos % (Auto) 1.7 Baso % (Auto) 0.4 Lymph # 2.2 [place] # 1.2 H Eos # 0.2 Baso # 0.0 Seg Neutrophils % 65.0 Seg Neutrophils # 6.7 PT 12.8 INR 0.95 APTT 35.1 Laboratory Results - last 24 hr 08/12/19 08/12/19 11:15 11:15 WBC 10.4 RBC 3.90 Hgb 11.9 Hct 35.6 MCV 91 MCH 31 MCHC 34 RDW 17.3 H Plt Count 476 H Lymph % (Auto) 21.3 [place] % (Auto) 11.6 H Eos % (Auto) 1.7 Baso % (Auto) 0.4 Lymph # 2.2 [place] # 1.2 H Eos # 0.2 Baso # 0.0 Seg Neutrophils % 65.0 Seg Neutrophils # 6.7 PT 12.8 INR 0.95 APTT 35.1 - EKG Data -: EKG Interpreted by Me EKG shows normal: sinus rhythm, axis, intervals, QRS complexes, ST-T waves Rate: normal Interpretation: nonspecific ST-T wave hanna Critical care attestation.: If time is entered above; I have spent that time in minutes in the direct care of this critically ill patient, excluding procedure time. ED Disposition Clinical Impression: Extraocular muscle palsy of left eye, Poorly-controlled hypertension, Diplopia Hyperglycemia due to type 2 diabetes mellitus Qualifiers: Diabetes mellitus senior care insulin use: with remote computer terminal operator use Qualified Code(s): E11.65 - Type 2 diabetes mellitus with hyperglycemia Disposition: DC-09 OP ADMIT IP TO THIS HOSP Is pt being admited?: Yes Does the pt Need Aspirin: Yes Condition: Stable Instructions: Diabetes Mellitus Type 2 in Adults (ED) Time of Disposition: 11:41
[2019-08-12 11:29] LABS: Basophils % (Auto) 0.4 % (0.0-1.8); Eosinophils # (Auto) 0.2 K/mm3 (0.0-0.4); Eosinophils % (Auto) 1.7 % (0.0-4.3); Hematocrit 35.6 % (30.3-42.9); Hemoglobin 11.9 gm/dl (10.1-14.3); Lymphocytes # (Auto) 2.2 K/mm3 (1.2-5.4); Lymphocytes % (Auto) 21.3 % (13.4-35.0); Mean Corpuscular HGB Conc 34 % (30-34); Mean Corpuscular Volume 91 fl (79-97); Monocytes # (Auto) 1.2 K/mm3 (0.0-0.8); Monocytes % (Auto) 11.6 % (0.0-7.3); Platelet Count 476 K/mm3 (140-440); Red Cell Distribution Width 17.3 % (13.2-15.2)
--- NOTE | 2019-08-12 11:29 | Cat Scan Report ---
CT HEAD WITHOUT CONTRAST INDICATION / CLINICAL INFORMATION: MAIN: CODE STROKE CALL [phone]. TECHNIQUE: All CT scans at this location are performed using CT dose reduction for ALARA by means of automated e xposure control. COMPARISON: Head CT 03/29/2019 FINDINGS: HEMORRHAGE: No evidence of intracranial hemorrhage or extra-axial fluid collection. EXTRA-AXIAL SPACES: Cortical sulci, sylvian fissures and basilar cisterns have an unremarkable appear ance. VENTRICULAR SYSTEM: The ventricular system is of normal size and configuration. CEREBRAL PARENCHYMA: There is evidence of remote small deep infarction is noted in the posterior aspe ct of the left thalamus and in the right galarza radiata and head of caudate nucleus on the right. No indication of acute infarction is demonstrated. MIDLINE SHIFT OR HERNIATION: There is no mass effect. CEREBELLUM / BRAINSTEM: Decreased attenuation in the yaajira is thought likely due to beam hardening art ifact from adjacent petrous bones. INTRACRANIAL VESSELS: Ossified atherosclerotic plaque is seen along the course of the cavernous segme nts of both internal carotid arteries. ORBITS: visualized portions of the orbits have an unremarkable appearance. SOFT TISSUES of HEAD: No significant abnormality. CALVARIUM: Evaluation of bone windows reveals no abnormalities. PARANASAL SINUSES / MASTOID AIR CELLS: Paranasal sinuses are free from inflammatory mucosal disease. Mastoid air cells are normally pneumatized. IMPRESSION: 1. Remote small deep infarctions left thalamus, right galarza radiata and head of caudate nucleus on t he right. 2. No acute intracranial abnormality. Code stroke: I called report of this study to Dr. Thacker of the [facility] emerg ency department at about 1021 Central standard time. Signer Name: Mike William MD Signed: 08/12/2019 11:25 AM Workstation Name: [id number]
--- NOTE | 2019-08-12 11:29 | Emergency Department Report ---
ED Neuro Deficit HPI - General Chief Complaint: Neuro Symptoms/Deficit Stated Complaint: DOUBLE VISION Source: patient Mode of arrival: Ambulatory Limitations: No Limitations - History of Present Illness Initial Comments: [facility] Tele[facility]urology [facility] Date of Service: 08/12/2019 10:42:40 Impression: Diplopia Comments: 64 yo with new onset diplopia. This is a horizontal process, and exam shows a mildly downward deviated left eye. I suspect a partial CN 3 palsy on the left, likely ischemic/diabetic. This is a stroke equivalent that should prompt work-up but no tPA due to time, and no EARLINE as a small vessel process. Metrics: Last Known Well: 08/11/2019 14:00:00 [facility] Notification Time: 08/12/2019 10:42:16 Arrival Time: 08/12/2019 10:34:00 Stamp Time: 08/12/2019 10:42:40 Time First Login Attempt: 08/12/2019 10:45:23 Video Start Time: 08/12/2019 10:50:02 Symptoms: Diplopia NIHSS Start Assessment Time: 08/12/2019 10:55:56 Patient is not a candidate for tPA. Patient was not deemed candidate for tPA thrombolytics because of Last Well Known Above 4.5 Hours. Video End Time: 08/12/2019 11:02:28 CT head showed no acute hemorrhage or acute core infarct. CT head was reviewed. Clinical Presentation is not Suggestive of Large Vessel Occlusive Disease, Patient is not a Candidate for Thrombectomy ED Physician notified of diagnostic impression and management plan on 08/12/2019 11:04:17 Our recommendations are outlined below. Recommendations: Activate Stroke Protocol Admission/Order Set Stroke/Telemetry Floor Neuro Checks Bedside Swallow Eval DVT Prophylaxis IV Fluids, Normal Saline Head of Bed Below 30 Degrees Euglycemia and Avoid Hyperthermia (PRN Acetaminophen) Initiate Aspirin Neurology consult Recommended Scan: Carotid Dopplers Echocardiogram - Transthoracic Echocardiogram Lipid Panel to Be Obtained, if Not Done in the Last Three Months Therapies: Physical Therapy, Occupational Therapy, Speech Therapy Assessment When Applicable Dysphaghia Screen: Swallow Evaluation, Bedside NPO Until Swallow Evaluation DVT prophylaxis: Choice of Primary Team Disposition: Sign Out Sign Out: Discussed with Emergency Department Provider History of Present Illness: Patient is a 64 year old Female. Patient was brought by private transportation with symptoms of Diplopia 64 yo with past stroke and residual R side symptoms states at about 1400 yesterday sudden onset of diplopia. It is a binocular process, improves if she covers one eye. Reports a horizontal diplopia, one image above the other. She also feels as if her chronic R side symptoms are a bit worse since this all started. She drove herself to ER this morning due to persistence of symptoms. She is diabetic, and takes ASA daily. CT head showed no acute hemorrhage or acute core infarct. CT head was reviewed. Examination: 1A: Level of Consciousness - Alert; keenly responsive + 0 1B: Ask Month and Age - Both Questions Right + 0 1C: Blink Eyes & Squeeze Hands - Performs Both Tasks + 0 2: Test Horizontal Extraocular Movements - Normal + 0 3: Test Visual Emerson - No Visual Loss + 0 4: Test Facial Palsy (Use Grimace if Obtunded) - Normal symmetry + 0 5A: Test Left Arm Motor Drift - No Drift for 10 Seconds + 0 5B: Test Right Arm Motor Drift - No Drift for 10 Seconds + 0 6A: Test Left Leg Motor Drift - No Drift for 5 Seconds + 0 6B: Test Right Leg Motor Drift - No Drift for 5 Seconds + 0 7: Test Limb Ataxia (FNF/Heel-Coker) - No Ataxia + 0 8: Test Sensation - Mild-Moderate Loss: Less Sharp/More Dull + 1 9: Test Language/Aphasia - Normal; No aphasia + 0 10: Test Dysarthria - Normal + 0 11: Test Extinction/Inattention - No abnormality + 0 NIHSS Score: 1 Patient was informed the Neurology Consult would happen via TeleHealth consult by way of interactive audio and video telecommunications and consented to receiving care in this manner. Due to the immediate potential for life-threatening deterioration due to underlying acute neurologic illness, I spent 35 minutes providing critical care. This time includes time for face to face visit via telemedicine, review of medical records, imaging studies and discussion of findings with providers, the patient and/or family. Dr Franc Costa [facility] Case [id number] - Related Data Home Medications: Home Medications Medication Instructions Recorded Confirmed Last Taken DULoxetine [Cymbalta] 30 mg PO QDAY 03/28/19 03/28/19 03/28/19 Gabapentin [Neurontin] 600 mg PO Q8H 03/28/19 03/28/19 03/27/19 Previous Rx's Medication Instructions Recorded Last Taken Type Amlodipine Besylate/Benazepril 1 each PO QDAY #30 03/30/19 03/28/19 Rx [Amlodipine-Benazepril 10-40 mg] Aspirin 325 mg PO QDAY #30 tablet 03/30/19 Unknown Rx Atorvastatin Calcium [Lipitor] 80 mg PO QHS #30 tablet 03/30/19 Unknown Rx Insulin Glargine [Lantus VIAL] 15 units SUB-Q QHS #1000 units 03/30/19 Unknown Rx Lispro Insulin [HumaLOG] 1 dose SUB-Q ACHS PRN #1000 units 03/30/19 Unknown Rx Nicotine [Habitrol] 21 mg TD DAILY #15 patch 03/30/19 Unknown Rx Triamter/Hctz 37.5-25 mg 1 tab PO QDAY #30 03/30/19 03/28/19 Rx [Maxzide-25] cefUROXime [Ceftin] 2 tab PO BID #20 tablet 03/30/19 Unknown Rx metFORMIN [Glucophage] 500 mg PO BIDDIAB #60 tablet 03/30/19 Unknown Rx traMADoL [Ultram 50 MG tab] 50 mg PO Q6HR PRN #30 03/30/19 03/27/19 Rx Allergies/Adverse Reactions: Allergies Allergy/AdvReac Type Severity Reaction Status Date / Time No Known Allergies Allergy Verified 01/02/19 17:57 ED Review of Systems ROS: Stated complaint: DOUBLE VISION Other details as noted in HPI ED Past Medical Hx - Past Medical History Previous Medical History?: Yes Hx Hypertension: Yes Hx CVA: Yes (2014,2015) Hx Heart Attack/AMI: No Hx Congestive Heart Failure: No Hx Diabetes: Yes Hx Deep Vein Thrombosis: No Hx Liver Disease: No Hx Arthritis: No Hx Seizures: No Hx Psychiatric Treatment: Yes (DEPRESSION) Hx Asthma: No Hx COPD: No Hx Dementia: No Additional medical history: Degenerative disc disease, INTUBATION 2016- RLL VENOUS CLOT,STRIPPED. Post stroke Thalmic syndrome - Surgical History Past Surgical History?: Yes Hx Coronary Stent: No Hx Pacemaker: No Hx Internal Defibrillator: No Additional Surgical History: AAA RESTECTION. - Social History Smoking Status: Unknown if ever smoked Substance Use Type: None - Medications Home Medications: Home Medications Medication Instructions Recorded Confirmed Last Taken Type DULoxetine [Cymbalta] 30 mg PO QDAY 03/28/19 03/28/19 03/28/19 History Gabapentin [Neurontin] 600 mg PO Q8H 03/28/19 03/28/19 03/27/19 History Amlodipine Besylate/Benazepril 1 each PO QDAY #30 03/30/19 03/28/19 03/28/19 Rx [Amlodipine-Benazepril 10-40 mg] Aspirin 325 mg PO QDAY #30 tablet 03/30/19 Unknown Rx Atorvastatin Calcium [Lipitor] 80 mg PO QHS #30 tablet 03/30/19 Unknown Rx Insulin Glargine [Lantus VIAL] 15 units SUB-Q QHS #1000 units 03/30/19 Unknown Rx Lispro Insulin [HumaLOG] 1 dose SUB-Q ACHS PRN #1000 units 03/30/19 Unknown Rx Nicotine [Habitrol] 21 mg TD DAILY #15 patch 03/30/19 Unknown Rx Triamter/Hctz 37.5-25 mg 1 tab PO QDAY #30 03/30/19 03/28/19 03/28/19 Rx [Maxzide-25] cefUROXime [Ceftin] 2 tab PO BID #20 tablet 03/30/19 Unknown Rx metFORMIN [Glucophage] 500 mg PO BIDDIAB #60 tablet 03/30/19 Unknown Rx traMADoL [Ultram 50 MG tab] 50 mg PO Q6HR PRN #30 03/30/19 03/28/19 03/27/19 Rx ED Neuro Physical Exam - General Limitations: No Limitations Suspected Stroke: Yes - NIHSS Assessment Interval: Baseline 1a. Level of Consciousness: alert/keenly responsive 1b. LOC Questions: answers both correctly 1c. LOC Commands: performs tasks correctly 2. Best Gaze: normal 3. Visual: no visual loss 4. Facial Palsy: normal symmetrical movement 5b. Motor Arm Right: no drift 5a. Motor Arm Left: no drift 6a. Motor Leg Left: no drift 6b. Motor Leg Right: no drift 7. Limb Ataxia: absent 8. Sensory: mild/moderate sensory loss 9. Best Language: no aphasia 10. Dysarthria: normal 11. Extinction/Inattention: no abnormality Total Score: 1 Stroke Severity: Minor Stroke ED Course Vital Signs 08/12/19 10:37 Temperature 97.7 F Pulse Rate 91 H Respiratory 18 Rate Blood Pressure 198/68 [Right] O2 Sat by Pulse 99 Oximetry Critical care attestation.: If time is entered above; I have spent that time in minutes in the direct care of this critically ill patient, excluding procedure time. ED Disposition Clinical Impression: Diplopia Disposition: DC-[id number] OP ADMIT IP TO THIS HOSP Is pt being admited?: Yes Does the pt Need Aspirin: Yes Condition: Stable
[2019-08-12 11:39] LABS: INR 0.95 (0.87-1.13)
[2019-08-12 11:40] LABS: Partial Thromboplastin Time 35.1 Sec. (24.2-36.6)
[2019-08-12] MEDS ORDERED: ASPIRIN 325 MG TAB PO ONE (11:41)
[2019-08-12 12:00] LABS: BUN/Creatinine Ratio 22; Blood Urea Nitrogen 22 mg/dL (7-17); Calcium 9.6 mg/dL (8.4-10.2); Hemolysis Index 13
[2019-08-12 12:04] LABS: Alanine Aminotransferase 9 units/L (7-56); Albumin 4.1 g/dL (3.9-5)
[2019-08-12 12:06] LABS: Bilirubin,Direct < 0.2 mg/dL (0-0.2)
--- NOTE | 2019-08-12 12:28 | History and Physical Report ---
History of Present Illness Chief complaint: I felt weak and my speech was slurred for a while History of present illness: 64 YO Female with HTN, Depression, Peripheral Neuropathy, CVA, DM, Nicotine Dependence, PVD S/P stent placement, Degenerative Disk disease presents to ED for evaluation. Patient states that she has experienced intermittent blurred vision over the past 2 weeks. Patient also reports that she was in her usual state of health at bedtime around 2130 hrs. overnight. Patient states that she awoke from sleep this morning around 0800 hrs. and experienced acute onset of worsening blurred vision and weakness on her right side as well as difficulty speaking. Patient transported to [facility] via private vehicle for further care and evaluation. Patient seen and evaluated in the emergency department. A code stroke was called and the patient was initiated on CVA protocol. Lab and imaging studies reviewed. Patient was found to have symptoms consistent with CVA and admitted to medical floor and initiated on CVA protocol. Tele-neurology was consulted in the emergency department. Patient denies fever, chills, chest pain, palpitations, unilateral leg swelling, calf pain, productive cough, skin rash, vertigo, syncope, trauma, headache, recent ill contacts. Prior admission on 03/28/2019 reviewed. All listed medication reconciled at time of admission. Advanced care planning conducted in ED. Past History Past Medical History: diabetes, hypertension, PVD, stroke, other (See HPI) Past Surgical History: abd. aortic aneurysm repair Social history: single. denies: smoking, alcohol abuse, prescription drug abuse Family history: diabetes, hypertension Medications and Allergies Allergies Allergy/AdvReac Type Severity Reaction Status Date / Time No Known Allergies Allergy Verified 01/02/19 17:57 Home Medications Medication Instructions Recorded Confirmed Last Taken Type DULoxetine [Cymbalta] 30 mg PO QDAY 03/28/19 08/12/19 03/28/19 History Gabapentin [Neurontin] 600 mg PO Q8H 03/28/19 08/12/19 03/27/19 History Amlodipine Besylate/Benazepril 1 each PO QDAY #30 03/30/19 08/12/19 03/28/19 Rx [Amlodipine-Benazepril 10-40 mg] Aspirin 325 mg PO QDAY #30 tablet 03/30/19 08/12/19 Unknown Rx Atorvastatin Calcium [Lipitor] 80 mg PO QHS #30 tablet 03/30/19 08/12/19 Unknown Rx Insulin Glargine [Lantus VIAL] 15 units SUB-Q QHS #1000 units 03/30/19 08/12/19 Unknown Rx Triamter/Hctz 37.5-25 mg 1 tab PO QDAY #30 03/30/19 08/12/19 03/28/19 Rx [Maxzide-25] metFORMIN [Glucophage] 500 mg PO BIDDIAB #60 tablet 03/30/19 08/12/19 Unknown Rx traMADoL [Ultram 50 MG tab] 50 mg PO Q6HR PRN #30 03/30/19 08/12/19 03/27/19 Rx Review of Systems Constitutional: no weight loss, no weight gain, no fever, no chills Ears, nose, mouth and throat: no ear pain, no ear discharge, no tinnitis, no decreased hearing, no nose pain, no nasal congestion Breasts: no change in shape, no swelling, no mass Cardiovascular: no chest pain, no rapid/irregular heart beat, no edema, no lightheadedness Respiratory: no cough, no cough with sputum, no hemoptysis, no shortness of breath, no dyspnea on exertion Gastrointestinal: no abdominal pain, no nausea, no vomiting, no diarrhea Genitourinary Female: no pelvic pain, no flank pain, no menorrhagia, no dysuria, no urgency, no stress incontinence, no post void dribbling Rectal: no pain, no incontinence Musculoskeletal: no neck stiffness, no neck pain, no arm numbness/tingling, no low back pain, no leg numbness/tingling, no redness of joints Integumentary: no rash, no pruritis, no sores Neurological: weakness, change in speech, confusion, loss of vision, no tingling, no seizures, no syncope, no tremors Psychiatric: no anxiety, no memory loss, no change in sleep habits, no sleep disturbances, no hypersomnia, no change in appetite Endocrine: no cold intolerance, no heat intolerance, no polyphagia, no excessive thirst, no excessive sweating, no flushing Hematologic/Lymphatic: no easy bruising, no easy bleeding, no lymphadenopathy Allergic/Immunologic: no urticaria, no allergic rhinitis, no wheezing, no persistent infections, no angioedema Exam - Constitutional Vitals: Temp Pulse Resp BP Pulse Ox 97.7 F 73 19 160/69 94 08/12/19 10:37 08/12/19 11:30 08/12/19 11:30 08/12/19 11:30 08/12/19 11:30 General appearance: Present: mild distress - EENT Eyes: Present: PERRL ENT: hearing intact, clear oral mucosa - Neck Neck: Present: supple, normal ROM - Respiratory Respiratory effort: normal Respiratory: bilateral: CTA - Cardiovascular Heart Sounds: Present: S1 & S2. Absent: rub, click - Extremities Extremities: pulses symmetrical, No edema Peripheral Pulses: within normal limits - Abdominal General gastrointestinal: Present: soft, non-tender, non-distended, normal bowel sounds Female genitourinary: Present: normal - Integumentary Integumentary: Present: clear, warm, dry - Musculoskeletal Musculoskeletal: right sided weakness - Psychiatric Psychiatric: appropriate mood/affect, intact judgment & insight - Neurologic Neurologic: CNII-XII intact, moves all extremities, no gait normal Results - Labs CBC & Chem 7: 08/12/19 11:15 08/12/19 11:15 Labs: Abnormal lab results 08/12/19 08/12/19 08/12/19 Range/Units 11:15 11:15 11:15 RDW 17.3 H (13.2-15.2) % Plt Count 476 H (140-440) K/mm3 Edgar % (Auto) 11.6 H (0.0-7.3) % Edgar # 1.2 H (0.0-0.8) K/mm3 Thrombin Time 14.7 L (15.1-19.6) Sec. Sodium 136 L (137-145) mmol/L Carbon Dioxide 20 L (22-30) mmol/L BUN 22 H (7-17) mg/dL Glucose 367 H (65-100) mg/dL Assessment and Plan - Patient Problems (1) CVA (cerebral vascular accident) Current Visit: No Status: Acute Qualifiers: CVA mechanism: unspecified Qualified Code(s): I63.9 - Cerebral infarction, unspecified Plan to address problem: CVA protocol: CT head, echo, carotid Doppler, antiplatelet therapy, neuro check, physical therapy therapy, Occupational Therapy, speech therapy, lipid panel, statin therapy, tele-neurology consulted in ED, neurology consulted. (2) Hypertension Current Visit: Yes Status: Acute Qualifiers: Hypertension type: essential hypertension Qualified Code(s): I10 - Essential (primary) hypertension Plan to address problem: Monitor blood pressure every shift, permissive hypertension overnight, supportive care. (3) Diabetes Current Visit: Yes Status: Acute Plan to address problem: Consistent carbohydrate diet, sliding scale insulin, Accu-Chek, hypoglycemia protocol. (4) Nicotine dependence Current Visit: Yes Status: Acute Qualifiers: Nicotine product type: cigarettes Substance use status: in withdrawal Qualified Code(s): F17.213 - Nicotine dependence, cigarettes, with withdrawal Plan to address problem: Smoking cessation counseling, behavior change counseling, +15 minutes. (5) DVT prophylaxis Current Visit: No Status: Acute Plan to address problem: SCD to bilateral lower extremities while in bed, patient is ambulatory. (6) Advance care planning Current Visit: Yes Status: Acute Plan to address problem: Patient is full code, disease education conducted, patient acknowledges understanding and agreement with care plan. +30 minutes.
[2019-08-12] MEDS ORDERED: ONDANSETRON 4 MG/2 ML INJ IV PRN (12:29)
[2019-08-12] MEDS ORDERED: MAGNESIUM HYDROXIDE (MOM) ORAL LIQD UDC PO PRN (12:29)
[2019-08-12] MEDS ORDERED: PROMETHAZINE 25 MG RECT SUPP PR PRN (12:29)
[2019-08-12] MEDS ORDERED: ACETAMINOPHEN 325 MG TAB PO PRN (12:29)
[2019-08-12] MEDS ORDERED: METOCLOPRAMIDE 10 MG TAB PO PRN (12:29)
[2019-08-12] MEDS ORDERED: NON-FORMULARY EACH (Gabapentin [Neurontin] 600 MG) PO SCH (12:45)
--- NOTE | 2019-08-12 12:51 | XRay Report ---
CHEST 1 VIEW INDICATION: hypertension. COMPARISON: FINDINGS: SUPPORT DEVICES: None. HEART / MEDIASTINUM: No significant abnormality. LUNGS / PLEURA: No significant pulmonary or pleural abnormality. No pneumothorax. ADDITIONAL FINDINGS: IMPRESSION: 1. No acute cardiopulmonary disease Signer Name: Garcia Williamson MD Signed: 08/12/2019 12:46 PM Workstation Name: [id number]
[2019-08-12] MEDS ORDERED: ASPIRIN 325 MG TAB ONE (13:34)
[2019-08-12] MEDS ORDERED: GABAPENTIN 300 MG CAP ONE (13:35)
[2019-08-12] MEDS: GABAPENTIN 300 MG CAP PO SCH ×2 (13:38→21:27)
--- NOTE | 2019-08-12 18:09 | Progress Note ---
Subjective Date of service: 08/12/19 Interval history: weakness and iplopia with severe fatigue sounds stroke like suspect full work up needed Objective - Vital Sign Vital Signs - 12hr 08/12/19 08/12/19 08/12/19 10:37 11:07 11:15 Temperature 97.7 F Pulse Rate 91 H 85 Respiratory 18 19 Rate Blood Pressure 176/81 Blood Pressure 198/68 [Right] O2 Sat by Pulse 99 98 95 Oximetry 08/12/19 08/12/19 08/12/19 11:30 12:00 12:30 Temperature Pulse Rate 73 78 73 Respiratory 19 14 19 Rate Blood Pressure 160/69 159/59 163/64 Blood Pressure [Right] O2 Sat by Pulse 94 94 Oximetry 08/12/19 08/12/19 08/12/19 13:01 13:11 13:21 Temperature Pulse Rate 81 70 69 Respiratory 13 21 19 Rate Blood Pressure 141/67 141/67 147/77 Blood Pressure [Right] O2 Sat by Pulse 92 93 92 Oximetry 08/12/19 08/12/19 08/12/19 13:31 13:41 13:51 Temperature Pulse Rate 71 91 H 90 Respiratory 21 14 20 Rate Blood Pressure 170/61 170/61 170/60 Blood Pressure [Right] O2 Sat by Pulse 94 97 94 Oximetry 08/12/19 08/12/19 08/12/19 14:31 14:46 15:17 Temperature 98.8 F Pulse Rate 79 77 Respiratory 18 17 Rate Blood Pressure 145/70 170/61 Blood Pressure [Right] O2 Sat by Pulse 97 94 89 Oximetry 08/12/19 08/12/19 08/12/19 15:21 15:30 15:41 Temperature Pulse Rate 76 73 80 Respiratory 13 12 12 Rate Blood Pressure 125/86 121/79 121/79 Blood Pressure [Right] O2 Sat by Pulse 100 98 98 Oximetry 08/12/19 08/12/19 15:51 16:53 Temperature 98.7 F Pulse Rate 75 Respiratory 18 Rate Blood Pressure 170/60 Blood Pressure [Right] O2 Sat by Pulse 97 Oximetry - Laboratory Findings CBC and BMP: 08/12/19 11:15 08/12/19 11:15 Abnormal Lab Findings: Abnormal Labs 08/12/19 08/12/19 08/12/19 11:15 11:15 11:15 RDW 17.3 H Plt Count 476 H [place] % (Auto) 11.6 H [place] # 1.2 H Thrombin Time 14.7 L Sodium 136 L Carbon Dioxide 20 L BUN 22 H Glucose 367 H POC Glucose 08/12/19 08/12/19 13:48 16:35 RDW Plt Count [place] % (Auto) [place] # Thrombin Time Sodium Carbon Dioxide BUN Glucose POC Glucose 267 H 349 H
[2019-08-12] MEDS: INSULIN LISPRO 100 UNIT/ML SUB-Q SCH (18:37)
[2019-08-12] MEDS: traMADol 50 MG TAB PO PRN (20:53)
[2019-08-12] MEDS: PRAVASTATIN 40 MG TAB PO SCH (21:27)
[2019-08-12] MEDS ORDERED: NON-FORMULARY EACH (Atorvastatin Calcium [Lipitor] 80 MG) PO SCH (22:00)
[2019-08-13] MEDS: INSULIN LISPRO 100 UNIT/ML SUB-Q SCH ×5 (01:02→23:13)
[2019-08-13] MEDS: GABAPENTIN 300 MG CAP PO SCH ×3 (06:21→21:15)
[2019-08-13 07:21] LABS: Chol/HDL Ratio 8.22 %
[2019-08-13] MEDS: DULoxetine 30 MG CAP PO SCH (10:44)
[2019-08-13] MEDS: TRIAMTER/HCTZ 37.5-25 MG TAB PO SCH (10:44)
[2019-08-13] MEDS: ASPIRIN 325 MG TAB PO SCH (10:44)
[2019-08-13] MEDS: traMADol 50 MG TAB PO PRN ×2 (10:48→20:06)
--- NOTE | 2019-08-13 13:32 | Progress Note ---
Subjective Date of service: 08/13/19 Interval history: I do agree with the reading on the CT of the head there is small thalamic infartc that does account for most of symptoms plan check the MRII an details of the ischemic stroke work up Thanks full note dicated Objective - Vital Sign Vital Signs - 12hr 08/13/19 08/13/19 08/13/19 05:26 10:43 12:53 Temperature 99.0 F 98.2 F Pulse Rate 73 83 89 Respiratory 18 16 Rate Blood Pressure 139/56 118/66 138/80 O2 Sat by Pulse 93 95 95 Oximetry - Laboratory Findings CBC and BMP: 08/12/19 11:15 08/12/19 11:15 Abnormal Lab Findings: Abnormal Labs 08/12/19 08/12/19 08/12/19 11:15 11:15 11:15 RDW 17.3 H Plt Count 476 H [place] % (Auto) 11.6 H [place] # 1.2 H Thrombin Time 14.7 L Sodium 136 L Carbon Dioxide 20 L BUN 22 H Glucose 367 H POC Glucose Triglycerides Cholesterol LDL Cholesterol Direct 08/12/19 08/12/19 08/12/19 13:48 16:35 22:12 RDW Plt Count [place] % (Auto) [place] # Thrombin Time Sodium Carbon Dioxide BUN Glucose POC Glucose 267 H 349 H 224 H Triglycerides Cholesterol LDL Cholesterol Direct 08/13/19 08/13/19 08/13/19 01:08 05:35 06:44 RDW Plt Count [place] % (Auto) [place] # Thrombin Time Sodium Carbon Dioxide BUN Glucose POC Glucose 231 H 247 H Triglycerides 288 H Cholesterol 362 H LDL Cholesterol Direct 282 H
--- NOTE | 2019-08-13 14:04 | Vascular Lab Report ---
TECHNICAL DATA: Imaging was performed from the base of the neck to the skull base using duplex sonography and color-f low imaging with emphasis on the carotid and vertebral arterial systems. RIGHT CAROTID ARTERY: The right internal carotid artery, right external carotid, and right common carotid artery all well i serafin and patent. Mild atherosclerotic plaque present at the carotid bifurcation. Right common carotid artery peak systolic velocity 54.77 cm/sec Right internal carotid artery peak systolic velocity 61.8cm/sec Right internal carotid artery end diastolic velocity 14.8cm/sec Right internal carotid artery/right common carotid artery ratio 1.13 Vertebral artery flow is antegrade. LEFT CAROTID ARTERY The left internal carotid artery, left external carotid, and left common carotid artery all well imag ed and patent. Mild atherosclerotic plaque present at the carotid bifurcation. Left common carotid artery peak systolic velocity 96.4cm/sec Left internal carotid artery peak systolic velocity 101cm/sec Left internal carotid artery end diastolic velocity 27.2 cm/sec Left internal carotid artery/right common carotid artery ratio 1.05 Normal antegrade flow of the vertebral arteries. IMPRESSION: This study proposed the incorporation of distal ICA flow velocity information on the conventional car otid Doppler study improving the diagnostic accuracy of PSV 1. Internal carotid arteries demonstrate <16-49stenosis: * deceleration spectral broadening with a peak systolic velocity (PSV) <125 cm/s 2. Normal common carotid arteries. 3. Normal external carotid arteries. 4. Antegrade flow both vertebral arteries. Signer Name: Garcia Williamson MD Signed: 08/13/2019 2:00 PM Workstation Name: [id number]
--- NOTE | 2019-08-13 14:09 | Consultation ---
HISTORY OF PRESENT ILLNESS: This is a 64-year-old black female who presents to [facility] with a new onset of generalized weakness, muscle pain, marked fatigue and loss of energy. She presents with double vision, having weakness of her right side, difficulty with walking, balance. Also, complains of headaches. She denies any similar period of problems in the past. MEDICATIONS ON ADMISSION: Amlodipine, aspirin, atorvastatin, insulin, triamterene, metformin and tramadol. She denies having a prior history of stroke. REVIEW OF SYSTEMS: She denies any prior history of head trauma, seizures. She has a prior medical history of diabetes, hypertension, and also elevated lipids. PHYSICAL EXAMINATION: VITAL SIGNS: On my examination of the patient, her blood pressure is 118/66, pulse rate is 83, respirations 18, temperature is 99 degrees. NEUROLOGIC: Cranial nerves II through XII are intact. She has a slight degree of hemiparesis of the right arm. She has hypesthesia of the right face and right leg. She has full visual angeles. Her neck is supple. No tremors or asterixis. No seizure activity is present. The patient is fully oriented, appropriate. Excellent memory. I do not notice that she has any dystonia. Examining the muscles, there are unremarkable. I do not see fasciculations. IMPRESSION: 1. Acute onset of double vision, right-sided weakness. Reviewing the CT scan, there is a definite ischemic infarct in the left thalamus. I cannot determine the age of it. 2. Hypertension. 3. Diabetes. 4. Elevated blood lipids. PLAN: Diagnostic workup for above disorder. Interestingly, she complains of a great deal of muscle pain, might be worth looking into a CPK to make sure she does not have a statin-induced myopathy and we will also check a serum magnesium level. The patient should have an MRI scan to fully complete her workup. We would recommend also a workup for ischemic stroke including carotid artery ultrasound and echocardiography. At this point, the patient's blood pressure is well controlled. I will follow the patient with you. JOB# [id number] DANIS/NTS
--- NOTE | 2019-08-13 14:52 | Progress Note ---
Assessment and Plan Assessment and plan: 64-year-old female who presented to hospital with slurred speech and double vision. She admitted that the symptoms had lasted for about 2 weeks. Acute CVA Cannot get MRI due to presence of TENS unit, CTA head and neck, carotid ultrasound, echo and neurology consult Severe hyperlipidemia, patient counseled on compliance with her statin, hypotensive statin recommended. Hypertension and diabetes, optimize medications Tobacco abuse/dependence Smoking cessation counseling performed for 10 minutes, nicotine patches when necessary Nonadherence, patient counseled History Interval history: Continues to complain of double vision Review of systems Constitutional: No fevers, no malaise, no joint pains CVS: No chest pain, no orthopnea, no dyspnea on exertion, no pedal edema GI: No abdominal pain, no diarrhea, no vomiting, no constipation Respiratory: no wheezing, no coughing Hospitalist Physical - Physical exam Narrative exam: General.: Appears well, no distress, nontoxic HEENT: Moist mucous membranes, extraocular muscles intact, no lymphadenopathy Neck: supple Cardiac: S1-S2 heard Lungs: clear to auscultation bilaterally Abdomen: soft , nontender, nondistended, bowel sounds positive Extremities: no edema clubbing or cyanosis Skin: no rash or lesions Neurologic: no gross focal deficits, reports that she continues to have double vision on my exam Psych: calm, and cooperative - Constitutional Vitals: Temp Pulse Resp BP Pulse Ox 98.2 F 89 16 138/80 95 08/13/19 12:53 08/13/19 12:53 08/13/19 12:53 08/13/19 12:53 08/13/19 12:53 General appearance: Present: mild distress Results - Labs CBC & Chem 7: 08/12/19 11:15 08/12/19 11:15 Labs: Laboratory Last Values WBC 10.4 K/mm3 (4.5-11.0) 08/12/19 11:15 RBC 3.90 M/mm3 (3.65-5.03) 08/12/19 11:15 Hgb 11.9 gm/dl (10.1-14.3) 08/12/19 11:15 Hct 35.6 % (30.3-42.9) 08/12/19 11:15 MCV 91 fl (79-97) 08/12/19 11:15 MCH 31 pg (28-32) 08/12/19 11:15 MCHC 34 % (30-34) 08/12/19 11:15 RDW 17.3 % (13.2-15.2) H 08/12/19 11:15 Plt Count 476 K/mm3 (140-440) H 08/12/19 11:15 Lymph % (Auto) 21.3 % (13.4-35.0) 08/12/19 11:15 Stanly % (Auto) 11.6 % (0.0-7.3) H 08/12/19 11:15 Eos % (Auto) 1.7 % (0.0-4.3) 08/12/19 11:15 Baso % (Auto) 0.4 % (0.0-1.8) 08/12/19 11:15 Lymph # 2.2 K/mm3 (1.2-5.4) 08/12/19 11:15 Stanly # 1.2 K/mm3 (0.0-0.8) H 08/12/19 11:15 Eos # 0.2 K/mm3 (0.0-0.4) 08/12/19 11:15 Baso # 0.0 K/mm3 (0.0-0.1) 08/12/19 11:15 Seg Neutrophils % 65.0 % (40.0-70.0) 08/12/19 11:15 Seg Neutrophils # 6.7 K/mm3 (1.8-7.7) 08/12/19 11:15 PT 12.8 Sec. (12.2-14.9) 08/12/19 11:15 INR 0.95 (0.87-1.13) 08/12/19 11:15 APTT 35.1 Sec. (24.2-36.6) 08/12/19 11:15 Thrombin Time 14.7 Sec. (15.1-19.6) L 08/12/19 11:15 Sodium 136 mmol/L (137-145) L 08/12/19 11:15 Potassium 4.6 mmol/L (3.6-5.0) 08/12/19 11:15 Chloride 98.4 mmol/L (98-107) 08/12/19 11:15 Carbon Dioxide 20 mmol/L (22-30) L 08/12/19 11:15 Anion Gap 22 mmol/L 08/12/19 11:15 BUN 22 mg/dL (7-17) H 08/12/19 11:15 Creatinine 1.0 mg/dL (0.7-1.2) 08/12/19 11:15 Estimated GFR > 60 ml/min 08/12/19 11:15 BUN/Creatinine Ratio 22 % 08/12/19 11:15 Glucose 367 mg/dL (65-100) H 08/12/19 11:15 POC Glucose 215 (70-105) H 08/13/19 12:59 Calcium 9.6 mg/dL (8.4-10.2) 08/12/19 11:15 Total Bilirubin < 0.20 mg/dL (0.1-1.2) 08/12/19 11:15 Direct Bilirubin < 0.2 mg/dL (0-0.2) 08/12/19 11:15 Indirect Bilirubin 0.0 mg/dL 08/12/19 11:15 AST 11 units/L (5-40) 08/12/19 11:15 ALT 9 units/L (7-56) 08/12/19 11:15 Alkaline Phosphatase 106 units/L (35-129) 08/12/19 11:15 Troponin T 0.011 ng/mL (0.00-0.029) 08/12/19 11:15 Total Protein 7.9 g/dL (6.3-8.2) 08/12/19 11:15 Albumin 4.1 g/dL (3.9-5) 08/12/19 11:15 Albumin/Globulin Ratio 1.1 % 08/12/19 11:15 Triglycerides 288 mg/dL (2-149) H 08/13/19 06:44 Cholesterol 362 mg/dL (50-199) H 08/13/19 06:44 LDL Cholesterol Direct 282 mg/dL (50-130) H 08/13/19 06:44 HDL Cholesterol 44 mg/dL (40-59) 08/13/19 06:44 Cholesterol/HDL Ratio 8.22 % 08/13/19 06:44 Active Medications - Current Medications Current Medications: Generic Name Dose Route Start Last Admin Trade Name Freq PRN Reason Stop Dose Admin Acetaminophen 650 mg 08/12/19 12:29 Tylenol PO Q4H PRN Pain, Mild (1-3) Aspirin 325 mg 02/23/20 10:00 08/13/19 10:44 Aspirin PO 325 mg QDAY BRIDGER Administration Atorvastatin Calcium 80 mg 08/12/19 22:00 08/12/19 21:27 Lipitor PO 80 mg QHS BRIDGER Administration Bisacodyl 10 mg 08/12/19 12:29 Dulcolax MI QDAY PRN Constipation Duloxetine HCl 30 mg 08/13/19 10:00 08/13/19 10:44 Cymbalta PO 30 mg QDAY BRIDGER Administration Gabapentin 600 mg 08/12/19 14:00 08/13/19 13:22 Gabapentin PO 600 mg Q8HR BRIDGER Administration Insulin Human Lispro 0 unit 08/13/19 11:30 08/13/19 13:39 Humalog SUB-Q 3 unit ACHS BRIDGER Administration Protocol Magnesium Hydroxide 30 ml 08/12/19 12:29 Milk Of Magnesia PO Q4H PRN Constipation Metoclopramide HCl 10 mg 08/12/19 12:29 Reglan PO Q6H PRN Nausea And Vomiting Ondansetron HCl 4 mg 08/12/19 12:29 Zofran IV Q8H PRN Nausea And Vomiting Pravastatin Sodium 40 mg 08/12/19 22:00 08/12/19 21:27 Pravachol PO 40 mg QHS BRIDGER Administration Promethazine HCl 25 mg 08/12/19 12:29 Phenergan MI Q6H PRN Nausea And Vomiting Sodium Chloride 10 ml 08/12/19 12:29 Sodium Chloride Flush Syringe 10 Ml IV PRN PRN LINE FLUSH Tramadol HCl 50 mg 08/12/19 12:32 08/13/19 10:48 Ultram PO 50 mg Q6HR PRN Administration PAIN Triamterene/HCTZ 1 each 08/13/19 10:00 08/13/19 10:44 Maxzide-25 PO 1 each QDAY BRIDGER Administration
--- NOTE | 2019-08-13 15:48 | Cat Scan Report ---
CTA neck without and with intravenous contrast material CLINICAL HISTORY: cva TECHNIQUE: Following acquisition of a timing bolus 0.625 mm thick contiguous axial scans were obtained from aort ic arch to the skull base during rapid bolus intravenous contrast infusion. In addition to evaluation of axial source images multiplanar reconstructions were produced and reviewed for this report. 3 yisel ne MIP reconstructions were produced and reviewed. FINDINGS: Thoracic aorta: Calcified atherosclerotic plaque is observed along the descending thoracic aorta and at the origin of the left subclavian, left carotid and brachiocephalic arteries. There is no associat ed stenosis. Brachiocephalic artery has an otherwise normal appearance. No abnormalities are seen in evaluation of the right or left subclavian arteries. Right carotid artery: Right common carotid artery has an unremarkable appearance. Evaluation of the r ight carotid bifurcation is remarkable for the presence of calcified atherosclerotic plaque which is not associated with stenosis. Cervical segments of the R ICA have an unremarkable appearance. Left carotid artery: A small amount of soft plaque is seen along the lateral margin of the left commo n carotid artery at the level of the hyoid bone. There is no indication of hemodynamically significan t stenosis. No abnormalities are seen at the carotid bifurcation. The left internal carotid artery is tortuous swinging medially to deform the posterior lateral wall of the nasopharynx on the left. The cervical segments of the LICA have an otherwise unremarkable appearance. Vertebral arteries: The right vertebral artery is dominant. Atherosclerotic disease is present at the origin of the right vertebral artery where a 50% stenosis is identified. No indication of atheroscle rotic disease along the course of the left vertebral artery. Both vertebral arteries contribute to th e basilar artery origin. Basilar artery: Visualized portions of the basilar artery have an unremarkable appearance. The degree of stenosis, if any, is determined utilizing NASCET like criteria. In this case there is n o indication of hemodynamically significant stenosis at the carotid bifurcations or elsewhere. There is a large (3.3 x 3.0 cm transverse dimension) mass in the superior mediastinum along the anter ior right lateral aspect of the trachea. This is not evaluated in its entirety. A similar finding was present on previous study. This could be a bronchogenic cyst. Further evaluation with chest CT witho ut contrast or MRI thorax without and with intravenous contrast would be useful for further evaluatio n. Evaluation of the thyroid gland reveals interval enlargement of a partially calcified nodule in the p osterior margin of the mid pole of the right lobe of the thyroid gland. This measures about 1.3 x 1.0 cm in transverse dimension by 1.5 cm in superior-inferior dimension. On previous study the lesion me asured about 1.0 x 0.9 cm in transverse dimension by 1.4 cm in superior-inferior dimension. Further e valuation with thyroid ultrasound is suggested. Several additional thyroid nodules are identified. Th myrna measure less than 9 mm in greatest dimension. Evaluation of the nonvascular soft tissue structures reveal no additional abnormality. There is no in dication of cervical lymphadenopathy. No abnormalities are seen along the course of the airway. Visua lized portions of the parotid glands and the submandibular salivary glands have a normal appearance. Evaluation of the lung apices reveals no evidence of lung nodule or infiltrate. Evaluation of the cer vical spine revealed no significant abnormalities. IMPRESSION: 1. Large low-attenuation right paratracheal mass as described above. Further evaluation is advised. 2. No indication of hemodynamically significant stenosis at the carotid bifurcations or elsewhere. 3. Interval increase in the size of a thyroid lesion along the posterior aspect of the midpole of the right lobe of the thyroid gland. Further evaluation with dedicated thyroid ultrasound is suggested. Contrast dose report: Omnipaque 350: 100 ml, administered intravenously All CT examinations performed at this facility utilize modulated dose reduction, iterative reconstruc tion or weight-based dosing, as appropriate, to obtain a radiation dose which is as low as can reason ably be achieved. Signer Name: Mike William MD Signed: 08/13/2019 3:37 PM Workstation Name: [id number] CTA head with intravenous contrast CLINICAL HISTORY: CVA. TECHNIQUE: 0.625 mm thick contiguous axial scans were obtained from the skull base to the skull vertex during ra pid bolus administration of intravenous contrast material. Multiplanar reconstructions were produced in the coronal and sagittal planes. In addition 3 plane MIP instructions were produced and reviewed f or this report. The axial source images and reconstructed images were reviewed for this report. All CT scans at this location are performed using CT dose reduction for ALARA by means of automated e xposure control. FINDINGS: Calcified atherosclerotic plaque is seen along the course of the cavernous segments of both internal carotid arteries. There is no associated stenosis. The caliber of the intracranial vessels is normal throughout. There is no indication of intracranial stenosis or large vessel occlusion. There is no indication of vasculitis. There is no evidence of aneurysm or other vascular malformation. IMPRESSION: 1. No indication of hemodynamically significant stenosis or large vessel occlusion. CONTRAST DOSE REPORT: Omnipaque 370: 100 ml administered intravenously. Signer Name: Mike William MD Signed: 08/13/2019 3:44 PM Workstation Name: [id number]
--- NOTE | 2019-08-13 15:56 | Cat Scan Report ---
CTA head with intravenous contrast CLINICAL HISTORY: CVA. TECHNIQUE: 0.625 mm thick contiguous axial scans were obtained from the skull base to the skull vert ex during rapid bolus administration of intravenous contrast material. Multiplanar reconstructions we re produced in the coronal and sagittal planes. In addition 3 plane MIP instructions were produced an d reviewed for this report. The axial source images and reconstructed images were reviewed for this r eport. All CT scans at this location are performed using CT dose reduction for ALARA by means of aut omated exposure control. FINDINGS: Calcified atherosclerotic plaque is seen along the course of the cavernous segments of bot h internal carotid arteries. There is no associated stenosis. The caliber of the intracranial vessels is normal throughout. There is no indication of intracranial stenosis or large vessel occlusion. There is no indication of vasculitis. There is no evidence of aneurysm or other vascular malformation. IMPRESSION: 1. No indication of hemodynamically significant stenosis or large vessel occlusion. CONTRAST DOSE REPORT: Omnipaque 370: 100 ml administered intravenously. Signer Name: Mike William MD Signed: 08/13/2019 3:51 PM Workstation Name: [id number]
[2019-08-13] MEDS: PRAVASTATIN 40 MG TAB PO SCH (21:16)
[2019-08-14] MEDS: GABAPENTIN 300 MG CAP PO SCH ×2 (07:01→13:49)
[2019-08-14] MEDS: INSULIN LISPRO 100 UNIT/ML SUB-Q SCH ×2 (07:30→11:30)
[2019-08-14] MEDS: traMADol 50 MG TAB PO PRN (09:04)
[2019-08-14] MEDS: TRIAMTER/HCTZ 37.5-25 MG TAB PO SCH (09:05)
[2019-08-14] MEDS: ASPIRIN 325 MG TAB PO SCH (09:05)
[2019-08-14] MEDS: DULoxetine 30 MG CAP PO SCH (09:05)
--- NOTE | 2019-08-14 12:53 | Discharge Summary ---
Providers - Providers Date of Admission: 08/12/19 12:29 Attending physician: DULCE SMITH MD 08/12/19 12:29 Occupational Therapy Evaluate and Treat [CONS] Routine Comment: Reason For Exam: Neuro deficits Physical Therapy Evaluation and Treat [CONS] Routine Comment: Reason For Exam: Neuro deficits 08/14/19 09:11 Consult to Physician [CONS] Routine Comment: Consulting Provider: AURELIANO BARNES Physician Instructions: Reason For Exam: cva? Primary care physician: LINETTE MEYERS Hospitalization Condition: Stable Hospital course: 64-year-old female who presented to hospital with slurred speech and double vision. She admitted that the symptoms had lasted for about 2 weeks. Acute CVA -Meds were optimized for secondary prevention, she received neurology consultation Cannot get MRI due to presence of TENS unit, CTA head and neck, carotid ultrasound, echo were unremarkable. Neurology consult appreciated Severe hyperlipidemia, patient counseled on compliance with her statin, hypotensive statin recommended. Hypertension and diabetes, optimize medications Tobacco abuse/dependence Smoking cessation counseling performed for 10 minutes, nicotine patches when necessary Preventative health counseling performed for 17 minutes Nonadherence, patient counseled Disposition: [id number] HOME UNDER HOME [facility] Time spent for discharge: 33 mins Core Measure Documentation - Palliative Care Palliative Care/ Comfort Measures: Not Applicable - Core Measures Any of the following diagnoses?: stroke - Stroke Discharge Requirements Statin for LDL = or >70 mg/dl on DC: Yes Anticoag for atrial fib/atrial flutter: Not Applicable Antithrombotic for ischemic stroke: Yes Exam - Constitutional Vitals: Temp Pulse Resp BP Pulse Ox 97.9 F 72 18 143/61 96 08/14/19 05:52 08/14/19 05:52 08/14/19 05:52 08/14/19 05:52 08/14/19 05:52 General appearance: Present: no acute distress, well-nourished - EENT Eyes: Present: PERRL ENT: hearing intact, clear oral mucosa - Neck Neck: Present: supple, normal ROM - Respiratory Respiratory effort: normal Respiratory: bilateral: CTA - Cardiovascular Heart Sounds: Present: S1 & S2. Absent: rub, click - Extremities Extremities: pulses symmetrical, No edema Peripheral Pulses: within normal limits - Abdominal General gastrointestinal: Present: soft, non-tender, non-distended, normal bowel sounds Female genitourinary: Present: normal - Integumentary Integumentary: Present: clear, warm, dry - Musculoskeletal Musculoskeletal: gait normal, strength equal bilaterally - Psychiatric Psychiatric: appropriate mood/affect, intact judgment & insight - Neurologic Neurologic: CNII-XII intact, moves all extremities Plan Follow up with: LINETTE MEYERS MD [Primary Care Provider] - 7 Days ROBERTO HAYES MD [Staff Physician] - 7 Days Prescriptions: Rosuvastatin Calcium [Crestor] 40 mg PO HS #90 tablet Fenofibrate Nanocrystallized [Fenofibrate] 160 mg PO DAILY #90 tablet Aspirin EC [Halfprin EC] 81 mg PO QDAY #90 tablet. Clopidogrel [Plavix] 75 mg PO QDAY #30 tablet
[2019-08-14 12:58] VITALS: BP 150/83
--- NOTE | 2019-08-14 14:52 | Consultation ---
History of Present Illness Consult date: 08/14/19 Reason for Consult: Double vision Chief complaint: Double vision History of present illness: Patient is a 64-year-old woman with a history of CVA with residual right-sided weakness and paresthesias, diabetes, hyperlipidemia, hypertension, depression, PVD, status post spinal cord stimulator. She presented 2 days ago with complaints of difficulty with double vision that him going on for about 2 weeks. She states that double vision had been intermittent for the past 2 weeks, and she noted it more when she looks to the left, however it is not there all the time. She also states that she feels an increase in generalized weakness, as well as weakness on the right side from baseline. Patient states that she has been compliant with aspirin at home. 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 She was recommended to have further work-up of this mass, however was unable to do so since that admission. Past History Past Medical History: diabetes, hypertension, PVD, stroke, other (See HPI) Past Surgical History: abd. aortic aneurysm repair Social history: single, smoking. denies: alcohol abuse, prescription drug abuse Family history: diabetes, hypertension Medications and Allergies Allergies Allergy/AdvReac Type Severity Reaction Status Date / Time No Known Allergies Allergy Verified 01/02/19 17:57 Home Medications Medication Instructions Recorded Confirmed Last Taken Type DULoxetine [Cymbalta] 30 mg PO QDAY 03/28/19 08/12/19 03/28/19 History Gabapentin [Neurontin] 600 mg PO Q8H 03/28/19 08/12/19 03/27/19 History Amlodipine Besylate/Benazepril 1 each PO QDAY #30 03/30/19 08/12/19 03/28/19 Rx [Amlodipine-Benazepril 10-40 mg] Insulin Glargine [Lantus VIAL] 15 units SUB-Q QHS #1000 units 03/30/19 08/12/19 Unknown Rx Triamter/Hctz 37.5-25 mg 1 tab PO QDAY #30 03/30/19 08/12/19 03/28/19 Rx [Maxzide-25] metFORMIN [Glucophage] 500 mg PO BIDDIAB #60 tablet 03/30/19 08/12/19 Unknown Rx traMADoL [Ultram 50 MG tab] 50 mg PO Q6HR PRN #30 03/30/19 08/12/19 03/27/19 Rx Aspirin EC [Halfprin EC] 81 mg PO QDAY #90 tablet. 08/14/19 Unknown Rx Clopidogrel [Plavix] 75 mg PO QDAY #30 tablet 08/14/19 Unknown Rx Fenofibrate Nanocrystallized 160 mg PO DAILY #90 tablet 08/14/19 Unknown Rx [Fenofibrate] Rosuvastatin Calcium [Crestor] 40 mg PO HS #90 tablet 08/14/19 Unknown Rx Active Meds: Active Medications Acetaminophen (Tylenol) 650 mg PO Q4H PRN PRN Reason: Pain, Mild (1-3) Aspirin (Aspirin) 325 mg PO QDAY [facility] Last Admin: 08/14/19 09:05 Dose: 325 mg Documented by: Atorvastatin Calcium (Lipitor) 80 mg PO QHS [facility] Last Admin: 08/13/19 21:15 Dose: 80 mg Documented by: Bisacodyl (Dulcolax) 10 mg [place] QDAY PRN PRN Reason: Constipation Duloxetine HCl (Cymbalta) 30 mg PO QDAY [facility] Last Admin: 08/14/19 09:05 Dose: 30 mg Documented by: Gabapentin (Gabapentin) 600 mg PO Q8HR [facility] Last Admin: 08/14/19 13:49 Dose: 600 mg Documented by: Insulin Human Lispro (Humalog) 0 unit SUB-Q [facility]; Protocol Last Admin: 08/14/19 11:30 Dose: 4 unit Documented by: Magnesium Hydroxide (Milk Of Magnesia) 30 ml PO Q4H PRN PRN Reason: Constipation Metoclopramide HCl (Reglan) 10 mg PO Q6H PRN PRN Reason: Nausea And Vomiting Ondansetron HCl (Zofran) 4 mg IV Q8H PRN PRN Reason: Nausea And Vomiting Pravastatin Sodium (Pravachol) 40 mg PO QHS [facility] Last Admin: 08/13/19 21:16 Dose: 40 mg Documented by: Promethazine HCl (Phenergan) 25 mg [place] Q6H PRN PRN Reason: Nausea And Vomiting Sodium Chloride (Sodium Chloride Flush Syringe 10 Ml) 10 ml IV PRN PRN PRN Reason: LINE FLUSH Last Admin: 08/14/19 09:07 Dose: 10 ml Documented by: Tramadol HCl (Ultram) 50 mg PO Q6HR PRN PRN Reason: PAIN Last Admin: 08/14/19 09:04 Dose: 50 mg Documented by: Triamterene/HCTZ (Maxzide-25) 1 each PO QDAY [facility] Last Admin: 08/14/19 09:05 Dose: 1 each Documented by: Review of Systems All systems: negative Neurological: weakness, parathesias, double vision Physical Examination - Vital Signs Vital Signs: Vital Signs Temp Pulse Resp BP Pulse Ox 97.7 F 91 H 18 198/68 99 08/12/19 10:37 08/12/19 10:37 08/12/19 10:37 08/12/19 10:37 08/12/19 10:37 - Physical Exam Narrative exam: Patient is alert, awake, oriented x4, follows complex commands. PERRL, EOMI, VFF, tongue midline, decreased on right to LT, no facial weakness noted. 5/5 in RUE/LUE/LLE, 4/5 in RLE. Decreased on RUE/RLE to light touch. Bilaterally intact to FTN and HTS. 3+ reflexes in RLE/RLE, 2+ in LUE/LLE. - Constitutional General appearance: comfortable - EENT EENT: Present: ATNC, PERRL, mucous membranes moist, hearing intact, vision intact - Respiratory Respiratory: Present: lungs clear, normal breath sounds - Cardiovascular Cardiovascular: Present: regular rate, normal S1, normal S2 Extremities: Present: no clubbing, cyanosis, no inflammation - Gastrointestinal Gastrointestinal: Present: normoactive bowel sounds, soft, non-tender - Integumentary Integumentary: Present: normal - Musculoskeletal Musculoskeletal: Present: no fluid collection - Psychiatric Psychiatric: Present: mood/affect appropriate - Level of Consciousness 1a. Level of Consciousness: alert/keenly responsive - LOC Questions 1b. LOC Questions: answers both correctly - LOC Command 1c. LOC Commands: performs tasks correctly - Best Gaze 2. Best Gaze: normal - Visual 3. Visual: no visual loss - Facial Palsy 4. Facial Palsy: normal symmetrical movement - Motor Arm 5a. Motor Arm Left: no drift 5b. Motor Arm Right: no drift - Motor Leg 6a. Motor Leg Left: no drift 6b. Motor Leg Right: drift (baseline) - Limb Ataxia 7. Limb Ataxia: absent - Sensory 8. Sensory: mild/moderate sensory loss - Best Language 9. Best Language: no aphasia - Dysarthria 10. Dysarthria: normal - Extinction and Inattention 11. Extinction/Inattention: no abnormality - Scoring Total Score: 2 Stroke Severity: Minor Stroke Results - Laboratory Findings CBC and BMP: 08/12/19 11:15 08/12/19 11:15 Abnormal Lab Findings: Abnormal Labs 08/12/19 08/12/19 08/12/19 11:15 11:15 11:15 RDW 17.3 H Plt Count 476 H [place] % (Auto) 11.6 H [place] # 1.2 H Thrombin Time 14.7 L Sodium 136 L Carbon Dioxide 20 L BUN 22 H Glucose 367 H POC Glucose Hemoglobin A1c Triglycerides Cholesterol LDL Cholesterol Direct 08/12/19 08/12/19 08/12/19 13:48 16:35 22:12 RDW Plt Count [place] % (Auto) [place] # Thrombin Time Sodium Carbon Dioxide BUN Glucose POC Glucose 267 H 349 H 224 H Hemoglobin A1c Triglycerides Cholesterol LDL Cholesterol Direct 08/13/19 08/13/19 08/13/19 01:08 05:35 06:44 RDW Plt Count [place] % (Auto) [place] # Thrombin Time Sodium Carbon Dioxide BUN Glucose POC Glucose 231 H 247 H Hemoglobin A1c Triglycerides 288 H Cholesterol 362 H LDL Cholesterol Direct 282 H 08/13/19 08/13/19 08/13/19 12:59 15:51 22:27 RDW Plt Count [place] % (Auto) [place] # Thrombin Time Sodium Carbon Dioxide BUN Glucose POC Glucose 215 H 322 H 296 H Hemoglobin A1c Triglycerides Cholesterol LDL Cholesterol Direct 08/14/19 08/14/19 08/14/19 07:43 08:05 12:30 RDW Plt Count [place] % (Auto) [place] # Thrombin Time Sodium Carbon Dioxide BUN Glucose POC Glucose 331 H 271 H Hemoglobin A1c 12.3 H Triglycerides Cholesterol LDL Cholesterol Direct Assessment and Plan Patient is a 64-year-old woman with a history of CVA with residual right-sided weakness and paresthesias, diabetes, hyperlipidemia, hypertension, depression, PVD, status post spinal cord stimulator, who presents with intermittent diplopia over the past 2 weeks. According the patient's clinical findings, it is likely that the patient has had an acute ischemic stroke/TIA. Alternatively, the patient may have left cranial nerve III palsy, as she was noted to have limited eye movements of the left eye when evaluated by tele-neurology on admission.. Another possible diagnosis is the patient may have myasthenia gravis causing diplopia. Plan: 1. Diplopia: - D/D includes stroke vs. CN III palsy 2/2 uncontrolled DM, vs. myasthenia gravis. - MRI brain unable to be performed due to spinal cord stimulator - CTA head/neck: No significant stenosis. However showed a right paratracheal mass - CT head: No acute abnormality. Chronic infarct in left thalamus, right coronary radiator, and right head of caudate. - Echo: EF 55 to 60%, LA normal size, bubble study negative. -Carotid ultrasound: No significant stenosis. -Recommend dual antiplatelet therapy with aspirin 81 mg daily and Plavix 75 mg daily for 30 days, after which Plavix can be stopped. Discussed risks and benefits of dual antiplatelet therapy with patient, and patient agreed to take this. - Cont. statin. LDL goal <70. Current LDL 282. - Telemetry monitoring while in house - PT/OT/ST - DVT Ppx: Recommend lovenox -Recommend for patient to stop smoking. -Check myasthenia gravis antibody panel. -Recommended for patient to undergo repeat CT head to rule out any infarct, as she is unable to undergo MRI. However patient stated that she would not want for this to be done at this time. 2. Hypertension: - Recommend BP goal of normotension, as it has been more than 48 hours since symptom onset. -Recommend outpatient follow-up with neurology in 2 to 3 weeks. Recommend outpatient follow-up with ophthalmology in 2 to 3 weeks. Thank you for allowing me to take part in the care of this patient. Marquez Sutton MD Neurology
[2019-08-14] MEDS ORDERED: CLOPIDOGREL 75 MG TAB PO SCH (18:00)
[2019-08-15] MEDS ORDERED: ASPIRIN EC 81 MG TAB PO SCH (10:00)
== END 2019-08-14 16:30 | disposition home health service (06) ==
LOC: ED 10:34 → 3A 12:29
PROVIDERS: ADMIT Internal Medicine; ATTEND Internal Medicine
DX: I63.9 Cerebral infarction, unspecified (principal); I10 Essential (primary) hypertension; E11.51 Type 2 diabetes mellitus with diabetic peripheral angiopathy without gangrene; E11.65 Type 2 diabetes mellitus with hyperglycemia; F32.9 Major depressive disorder, single episode, unspecified; F17.213 Nicotine dependence, cigarettes, with withdrawal; Z79.84 Long term (current) use of oral hypoglycemic drugs; Z79.899 Other long term (current) drug therapy
CPT/HCPCS: 36415; 70450; 70496; 70498; 71045; 80048; 80061; 80076; 82962; 83036; 84484; 85025; 85610; 85670; 85730; 87116; 93005; 93010; 93306; 93880; 97116; 97162; 97165; 99291; A9270; G0378; Q9967; J1815